=== PATIENT | male | born 1970 | race Caucasian/White ===

== ENCOUNTER 2021-04-24 13:07 | Emergency (ER) | payer OTHER, SELFPAY ==
[2021-04-24 15:00] VITALS: BP 141/87; PULSE 71; RESP 18; TEMP 37.1; O2SAT 97; BMI 32.0
--- NOTE | 2021-04-24 15:20 | HMH.EDUTC ---
[facility] [place] [facility] Disposition Clinical Impression: Viral syndrome Disposition: Home, Self-Care Condition on Discharge: Good Instructions: DI for Viral Syndrome, DI for COVID-19 (Suspected or Confirmed ) Additional Instructions: *Monitor Temp, Over the counter Motrin or Tylenol as directed/as needed Tylenol every 4 hours and Motrin every 6 hours (as long as your family doctor has told you that you can take it) for fever or pain. and straight to ER if unable to lower temp less than 101.0 after medication given *Warm salt water gargles may help to soothe the throat *Throat Lozenges *Warm fluids like tea with honey may help to soothe the throat *Sleep elevated *Humidifier/Vaporizer Follow up IMMEDIATELY for new or worsening symptoms or no Noticeable improvement over the next 48-72 hours. 911 for difficulty breathing or swallowing You were tested for today for COVID19 your test result should be back in the next 24-48 hours, you may check your results on the [facility] Portal if you have trouble logging on you may call You was given a handout with instructions for Self Quarantine and Self isolation for while you wait on test results and what to do if they are positive If you are positive the Health Dept will be contacting you also Make sure to take your Vitamins Vit. C Vit D and Zinc if you can take them Referrals: Sangeeta Kiser [Primary Care Provider] - As needed Forms: Work/School Release Medical Decision Making - Richard Inquiry Pt receiving controlled substance: No Richard was queried for this patient: No Vital Signs: 04/24/21 15:00 Temperature 98.8 F Temperature Source Oral Pulse Rate [Right Brachial] 71 Respiratory Rate 18 Blood Pressure [Right Arm] 141/87 H Blood Pressure Mean [Right Arm] 105 Blood Pressure Source [Right Arm] Automatic Cuff Blood Pressure Position [Right Arm] Sitting 02 Sat by Pulse Oximetry 97 Oxygen Delivery Method Room Air - Lab Data Lab results reviewed: Yes: I reviewed the patient's lab results. Orders (Tests/Meds): ORDERS Category Date Time Status Covid-19 Nasal PCR ([facility]) Routine Lab 04/24/21 15:17 Ordered [facility] [place] HPI - General Stated complaint: covid test Time Seen by Provider: 04/24/21 15:20 Mode of Arrival: Ambulatory Source of Information: Patient Limitations: No Limitations Description of Symptoms (Recalled from Triage Doc. by RN): PATIENT C/O FEVER, CHILLS, AND BODY ACHES SINCE YESTERDAY. REQUESTING COVID TEST HEENT Symptoms (Recalled from RN notes): No Resp Symptoms (Recalled from RN notes): No Skin Symptoms (Recalled from RN notes): No MS Symptoms (Recalled from RN notes): No Functional Status (Recalled from RN notes): WNL - History of Present Illness Provider Complaint: Patient states that yesterday he started having fever, chills and body aches State that he has continued to have same symptoms today and he was concerned and wanted to come in and get tested for COVID and flu - Related Data Allergies Allergy/AdvReac Type Severity Reaction Status Date / Time No Known Allergies Allergy Verified 11/01/18 17:04 - Worker's Comp Is this a Worker's Comp case?: No [facility] History - Hepatitis A Screen Drug use history?: No High risk sexual behaviors?: No History of sexually transmitted infection?: No Currently employed?: No Childcare worker?: No Do you have indoor plumbing?: Yes Do you have electricity?: Yes Attestation statement:: This patient has been screened for Hepatitis A risk factors. I have reviewed the patient's past medical history: Yes ROS Obtained: Yes All systems reviewed & no additional complaints, Yes Systems reviewed as appropriate & no additional complaints - Constitutional Constitutional: Reports system reviewed and no additional complaints, except as docu, Reports body ache, Reports chills, Reports fever(s) - ENT Ears, Nose, Mouth, and Throat: Reports system reviewed and no additional complaints, except as docu, Denies sinus pain,
[2021-04-24 15:25] VITALS: BP 141/87; PULSE 71; RESP 18; TEMP 37.1; O2SAT 97
[2021-04-24 15:40] LABS: UTC Influenza A Antigen Negative (Negative); UTC Influenza B Antigen Negative (Negative)
== END 2021-04-24 15:28 | disposition home or self-care (01) ==
PROVIDERS: Emergency Provider Nurse Practitioner; PCP Nurse Practitioner Family
DX: U07.1 COVID-19 (principal)
CPT/HCPCS: 87804; 99202; C9803; G0463; U0003; U0005

== ENCOUNTER 2022-02-26 11:34 | Emergency (ER) | payer OTHER, SELFPAY ==
[2022-02-26 13:16] VITALS: BP 132/86; PULSE 74; RESP 19; TEMP 36.7; O2SAT 98; BMI 33.0
--- NOTE | 2022-02-26 13:54 | EXP.UTC ---
Discharge Plan Disposition Patient Disposition: Home, Self-Care Condition: Good Prescriptions Prescriptions: New clindamycin HCl 300 mg capsule 300 mg PO Q8H Qty: 30 0RF mupirocin 2 % ointment 1 applic topical TID 10 Days Qty: 22 0RF Rx Instructions: apply to area as directed Referrals Follow up/Referrals: Kalyani Sullivan [Primary Care Provider] - See instructions Activity Restrictions/Add. Instructions Additional Instructions/Restrictions: *Start antibiotic(s) immediately and be sure to take as ordered for the FULL length of time although you may be feeling better or start to see improvement in the next 24-48 hours *Monitor closely. Outlined redness so that you can monitor easier. Follow up immediately for new or worsening symptoms including but not limited to redness, swelling, streaking from site fever or chills. *Warm compress 15 minutes 3-4 times day *Never squeeze or pop these on your own. Seek immediate medical attention next time this occurs *Monitor Temp. Tylenol every 4 hours as needed and ibuprofen every 6 hours as needed (as long as your primary care doctor has told you that it is ok to take both. For fever, aches, pain. ER if no less that 101 despite Tylenol and ibuprofen ?Follow up with your family doctor/primary care physician in the next 48-72 hours if no improvement Clinical Impressions Clinical Impression: Cellulitis Instructions Patient Instructions: Cellulitis, Clindamycin Discharge ED Provider: Martha Camejo [facility] General Stated complaint: bump on back, no major pain Mode of Arrival: Ambulatory Source of Information: Patient Limitations: No Limitations Time Seen by Provider: 02/26/22 13:54 Description of Symptoms (Recalled from Triage Doc. by RN): PATIENT REPORTS AREA TO UPPER BACK THAT IS RED AND WARM X 2 DAYS HEENT Symptoms (Recalled from RN notes): No Resp Symptoms (Recalled from RN notes): No Skin Symptoms (Recalled from RN notes): Yes MS Symptoms (Recalled from RN notes): No Functional Status (Recalled from RN notes): WNL History of Present Illness Provider Complaint: Patient states that he has a bump in the middle of his back that he noticed about a week ago that appears like it is getting bigger States that he noticed it was looking red around it and hard so he came in to get it checked out Related Data Previous Rx's Medication Instructions Recorded clindamycin HCl 300 mg capsule 300 mg PO Q8H #30 caps 02/26/22 mupirocin 2 % topical ointment 1 applic topical TID 10 days #22 02/26/22 grams Allergies Allergy/AdvReac Type Severity Reaction Status Date / Time Penicillins Allergy Verified 04/24/21 15:20 Worker's Comp Is this a Worker's Comp case?: No PFSH PFSH Medical History (Updated 02/26/22 @ 14:24 by Martha Camejo APRN) Depression Hyperlipidemia Social History (Updated 02/26/22 @ 13:18 by Bibiana Smith RN) Smoking Status: Unknown if ever smoked alcohol intake: never current occupational status: other Travel in the last 8 weeks: None ROS Obtained: Yes All systems reviewed & no additional complaints except as documented and Yes Systems reviewed as appropriate & no additional complaints except as documented Constitutional Constitutional: Reports system reviewed and no additional complaints, except as documented and Reports as per HPI ENT Ears, Nose, Mouth, and Throat: Reports system reviewed and no additional complaints, except as documented and Reports as per HPI Integumentary/Breasts Skin/Breast: Reports system reviewed and no additional complaints, except as documented, Reports as per HPI and Reports other (hard round area on back with surrounding redness got worse x 2 day) Physical Exam General General appearance: alert and in no apparent distress Respiratory Respiratory exam: Present normal lung sounds bilaterally; Absent respiratory distress or wheezes Cardiovascular Cardiovascular exam: Present regular rate, normal rhythm and
[2022-02-26 14:21] VITALS: BP 132/86; PULSE 74; RESP 19; TEMP 36.7; O2SAT 98
== END 2022-02-26 14:25 | disposition home or self-care (01) ==
PROVIDERS: Emergency Provider Nurse Practitioner; PCP Nurse Practitioner Family
DX: L03.312 Cellulitis of back [any part except buttock and flank] (principal)
CPT/HCPCS: 99212; G0463

== ENCOUNTER → 2022-03-15 15:34 | Outpatient (POV) | payer OTHER, SELFPAY | PROVIDERS: Visit Provider Dermatology | DX: Z00.00 Encounter for general adult medical examination without abnormal findings (principal) ==

== ENCOUNTER 2024-03-06 17:37 | Emergency (ER) | payer OTHER, SELFPAY ==
--- NOTE | 2024-03-06 17:39 | XR_ITS ---
PROCEDURE INFORMATION: Exam: XR Left Forearm Exam date and time: 03/06/2024 5:39 PM Age: 53 years old Clinical indication: Pain; Lower or forearm; Left TECHNIQUE: Imaging protocol: Radiologic exam of the left forearm. Views: 2 views. COMPARISON: No relevant prior studies available. FINDINGS: Bones/joints: No acute fracture or malalignment. Soft tissues: Unremarkable. IMPRESSION: No acute findings.
--- OUTSIDE RECORDS SUMMARY | 2024-03-06 17:41 | XMS_ITS | Encounter Summary ---
Author Organization [facility] Address [address] [place] [id number] Care Team Providers Care Pharmacologist Name Role Phone Laurie Kalyani Chely EASTMAN Primary Care Provider [phone] Encounter Details Date Type Department Care Team (Latest Contact Info) Description 01/26/2024 3:30 PM EDT Clinical Support [address] [address] Encounter for administration of vaccine (Primary Dx) Social History Tobacco Use Types Packs/Day Years Used Date Smoking Tobacco: Former Cigarettes 0.5 20 0 05/2002 - 05/2022 Passive Smoke Exposure: Past Smokeless Tobacco: Never PHQ-2 Answer Date Recorded Patient Health Questionnaire-2 Score 0 07/14/2023 PHQ-2A Answer Date Recorded Patient Health Questionnaire-2 Score 0 07/22/2022 Sex and Gender Information Value Date Recorded Sex Assigned at Not on file Legal Sex Male 7:58 PM EDT Gender Identity Male 06/18/2021 4:33 AM EST Sexual Orientation Not on file documented as of this encounter Last Filed Vital Signs Vital Sign Reading Time Taken Comments Blood Pressure - - Pulse 87 01/26/2024 3:29 PM EDT Temperature - - Respiratory Rate 18 01/26/2024 3:29 PM EDT Oxygen Saturation 95% 01/26/2024 3:29 PM EDT Inhaled Oxygen Concentration - - Weight - - Height - - Body Mass Index - - documented in this encounter Miscellaneous Notes * Progress Notes - Carrol Lee LPN - 01/26/2024 3:30 PM EDT Pt here for shingrix vaccine. Admin noted. Pt tolerated well. documented in this encounter Plan of Treatment Not on file documented as of this encounter Visit Diagnoses Diagnosis Encounter for administration of vaccine- Primary documented in this encounter Additional Health Concerns Assessment Noted Time A fall risk assessment has been complete d for the patient 07/14/2023 8:19 AM EDT A Body Mass Index follow-up plan has been documented for the patient 01/26/2024 3:32 PM EDT documented as of this encounter Care Teams Pharmacologist Relationship Specialty Start Date End Date Kalyani Sullivan, CRITICAL CARE EDUCATOR [address] [place] [address] PCP - General 08/28/20 documented as of this encounter
--- OUTSIDE RECORDS SUMMARY | 2024-03-06 17:41 | XMS_ITS | Encounter Summary ---
Author Organization [facility] Address [address] [id number] Care Team Providers Care Retail Department Manager Name Role Phone Kalyani Sullivan ROUTE SALES DELIVERY DRIVER Primary Care Provider [phone] Encounter Details Date Type Department Care Team (Late st Contact Info) Description 01/18/2024 Orders Only [facility] [address] [place] [address] Kalyani Sullivan APRN [address] [place] [address] Uncontrolled type 2 diabetes mellitus with hyperglycemia (CMS/HCC) (Primary Dx) Social History Tobacco Use Types [...] on file documented as of this encounter Plan of Treatment Not on file documented as of this encounter Visit Diagnoses Diagnosis Uncontrolled type 2 diabetes mellitus with hyperglycemia (CMS/HCC)- Primary documented in this encounter Additional Health Concerns Assessment Noted Time A fall risk assessment has been complete d for the patient 07/14/2023 8:19 AM EDT A Body Mass Index follow-up plan has been documented for the patient 07/14/2023 8:58 AM EDT documented as of this encounter Care Teams Retail Department Manager Relationship Specialty Start Date End Date Kaylani Sullivan APRN [address] [place] [id number] PCP - General 08/28/20 documented as of this encounter
--- OUTSIDE RECORDS SUMMARY | 2024-03-06 17:41 | XMS_ITS | Encounter Summary ---
Author Organization [facility] Address [address] [place] [address] Care Team Providers Care Light Oil Operator Name Role Phone Kalyani Sullivan APRN Primary Care Provider [phone] Encounter Details Date Type Department Care Team (Latest Contact Info) Description 01/26/2024 Travel Social History Tobacco Use Types Packs/Day Years [...] documented as of this encounter Visit Diagnoses Not on filedocumented in this encounter Additional Health Concerns Assessment Noted Time A fall risk assessment has been complete d for the patient 07/14/2023 8:19 AM EDT A Body Mass Index follow-up plan has been documented for the patient 01/26/2024 3:32 PM EDT documented as of this encounter Care Teams Light Oil Operator Relationship Specialty Start Date End Date Kalyani Sullivan APRN [address] [place] [address] PCP - General 08/28/20 documented as of this encounter
--- OUTSIDE RECORDS SUMMARY | 2024-03-06 17:41 | XMS_ITS | Encounter Summary ---
Author Organization [facility] Address [address] [place] [address] Care Team Providers Care Warehouse Picker Name Role Phone Kalyani Sullivan ENTRY LEVEL MACHINE OPERATOR Primary Care Provider [phone] Reason for Visit * Reason Comments Med Refill Encounter Details Date Type Department Care Team (Late st Contact Info) Description 10/24/2023 Refill [facility] [address] [place] [address] Kalyani Sullivan, ENTRY LEVEL MACHINE OPERATOR [address] [place] [address] Uncontrolled type 2 diabetes mellitus with hyperglycemia (CMS/HCC) Social History Tobacco Use Types Packs/Day Years [...] on file documented as of this encounter Miscellaneous Notes * Telephone Encounter - David Shledon, PharmD - 10/26/2023 12:14 PM EDT 1 medication(s) has been denied per protocol due to: Refill requested too soon 9 months sent 09/28/23 documented in this encounter Plan of Treatment Not on file documented as of this encounter Visit Diagnoses Diagnosis Uncontrolled type 2 diabetes mellitus with hyperglycemia (CMS/HCC) documented in this encounter Additional Health Concerns Assessment Noted Time A fall risk assessment has been complete d for the patient 07/14/2023 8:19 AM EDT A Body Mass Index follow-up plan has been documented for the patient 07/14/2023 8:58 AM EDT documented as of this encounter Care Teams Warehouse Picker Relationship Specialty Start Date End Date Kalyani Sullivan, JAREN [address] [place] [address] PCP - General 08/28/20 documented as of this encounter
--- OUTSIDE RECORDS SUMMARY | 2024-03-06 17:41 | XMS_ITS | Encounter Summary ---
Author Organization [facility] Address [address] [id number] Care Team Providers Care Ticket Chopper Assembler Name Role Phone Kalyani Sullivan TELEGRAPH DISPATCHER Primary Care Provider Encounter Details Date Type Department Care Team (Late st Contact Info) Description 11/02/2023 Orders Only [facility] [address] [place] [address] Kalyani Sullivan TELEGRAPH DISPATCHER [address] [place] [address] Uncontrolled type 2 diabetes mellitus [...] documented as of this encounter Care Teams Ticket Chopper Assembler Relationship Specialty Start Date End Date Kalyani Sullivan APRN [facility] [place] [phone] PCP - General 08/28/20 documented as of this encounter
--- OUTSIDE RECORDS SUMMARY | 2024-03-06 17:41 | XMS_ITS | Clinical Summary ---
Author Organization [facility] Address [address] [place] [address] Care Team Providers Care Options Advisor Name Role Phone LaurieKalyani tavarez Chely EASTMAN Primary Care Provider [phone] Allergies Active Allergy Reactions Criticality Noted Date Comments Penicillins Unknown - Patient st ates they do not know rxn details Low 07/11/2014 Medications metFORMIN XR (Glucophage-XR) 500 MG 24 hr tabletIndications :Uncontrolled type 2 diabetes mellitus with hyperglycemia (CMS/[facility]),Control led type 2 diabetes mellitus without complication, without long-term current use of insulin (CMS/HCC),Healthc are maintenance TAKE 1 TABLET TWICE A DAY WITH MEALS (DO NOT CRUSH, CHEW OR SPLIT) 180 tablet 3 07/14/19 24 Active pravastatin (Pravachol) 80 MG tabletIndications :Controlled type 2 diabetes mellitus without complication, without long-term current use of insulin (CMS/[facility]),Hypertr iglyceridemia,Hea lthcare maintenance Take 1 tablet (80 mg) by mouth 1 (one) time each day. 90 tablet 3 07/14/19 24 Active losartan (Cozaar) 25 MG tabletIndications :Controlled type 2 diabetes mellitus without complication, without long-term current use of insulin (CMS/HCC),Primary hypertension,Heal thcare maintenance Take 1 tablet (25 mg) by mouth 1 (one) time each day. 90 tablet 3 07/14/19 24 Active Fenofibrate 50 MG capsuleIndication s:Controlled type 2 diabetes mellitus without complication, without long-term current use of insulin (CMS/HCC),Hypertr iglyceridemia,Hea lthcare maintenance Take 1 capsule once a day with a meal 90 capsule 3 07/14/19 24 Active Semaglutide, 1 MG/DOSE, (Ozempic, 1 MG/DOSE,) 4 MG/3ML solution pen-injectorIndic ations:Uncontroll ed type 2 diabetes mellitus with hyperglycemia (CMS/HCC) Inject 1 mg under the skin 1 (one) time per week. 9 mL 01/18/20 24 Active FLUoxetine (PROzac) 40 MG capsuleIndication s:Generalized anxiety disorder Take 1 capsule (40 mg) by mouth 1 (one) time each day. 90 capsule 1 02/27/20 24 Active FLUoxetine (PROzac) 40 MG capsuleIndication s:Generalized anxiety disorder Take 1 capsule (40 mg) by mouth 1 (one) time each day. 30 capsule 5 08/09/19 24 024 Discontinued Active Problems Problem Noted Date Diagnosed Date Uncontrolled type 2 diabetes mellitus with hyper glycemia 10/19/2021 Hypertriglyceridemia 08/04/2020 Actinic keratosis 07/31/2020 Controlled type 2 diabetes mellitus 07/31/2020 Hypertension 06/29/2016 Generalized anxiety disorder 07/12/2014 Encounters Date Type Department Care Team Description 02/25/2024 Refill [facility] [address] [place] [address] Kalyani Sullivan APRN Generalized anxiety disorder 01/26/2024 3:30 PM EDT Clinical Support [facility] [address] [place] [address] Encounter for administration of vaccine (Primary Dx) 01/26/2024 Travel 01/18/2024 Orders Only [facility] [address] [place] [address] Kalyani Sullivan APRN Uncontrolled type 2 diabetes mellitus with hyperglycemia (CMS/HCC) (Primary Dx) 01/17/2024 Telephone [facility] [address] [place] [address] Kalyani Sullivan APRN 01/15/2024 Refill [facility] [address] [place] [address] Kalyani Sullivan, ASSISTANT DIRECTOR Uncontrolled type 2 diabetes mellitus with hyperglycemia (CMS/HCC) from Last 3 Months Immunizations Name Administration Dates Next Due Hep A, Adult 05/25/2018,02/16/2018 Influenza, injectable, MDCK, preservative free, quadrivalent 01/11/2022 Influenza, injectable, quadrivalent 02/16/2018 Moderna COVID-19 Vaccine Bivalent 6months+ 01/11 Tdap 08/23/2019 Zoster, Recombinant 01/26/2024,07/14/2023 Family History Medical History Relation Name Comments Hypertension Father Cardiac disorder Paternal Grandmother Relation Name Status Comments Father Paternal Grandmother Social History Tobacco Use Types Packs/Day Years Used Date Smoking Tobacco: Former Cigarettes 0.5 20 0 05/2002 - 05/2022 Passive Smoke Exposure: Past Smokeless Tobacco: Never Tobacco Cessation:Counseling Given: Not Answered PHQ-2 Answer Date Recorded Patient Health Questionnaire-2 Score 0 07/14/2023 PHQ-2A Answer Date Recorded Patient Health Questionnaire-2 Score 0 07/22/2022 Sex and Gender Information Value Date Recorded Sex Assigned at Not on file Legal Sex Male 7:58 PM EDT Gender Identity Male 06/18/2021 4:33 AM EST Sexual Orientation Not on file Last Filed Vital Signs Vital Sign Reading Time Taken Comments Blood Pressure 132/82 07/14/2023 8:14 AM EDT Pulse 87 01/26/2024 3:29 PM EDT Temperature 36.7 ??C (98 ??F) 07/22/2022 7:34 AM EDT Respiratory Rate 18 01/26/2024 3:29 PM EDT Oxygen Saturation 95% 01/26/2024 3:29 PM EDT Inhaled Oxygen Concentration - - Weight 105 kg (231 lb 12.8 oz) 07/14/2023 8:14 A M EDT Height 177.8 cm (5' 10 ) 07/14/2023 8:14 AM EDT Body Mass Index 33.26 07/14/2023 8:14 AM EDT Plan of Treatment Health Maintenance Due Date Last Done Comments [facility]-HIV Screening 1971 [facility]-Infant/Child/Adol SDOH Screenings 1971 [facility]-Pneumococcal Vaccine: Pediatrics (0 to 5 Years) and At-Risk Patients (6 to 64 Years) (1 of 2 - PCV) 10/07/1977 Diabetes: Dental Exam 10/07/1981 [facility]- SDOH Screenings 10/07/1989 [facility]-Adult SDOH Screenings 10/07/1989 [facility]-Hepatitis B Vaccines (1 of 3 - 19+ 3-dose series) 10/07/1990 CT Colonography 10/07/2016 FIT-DNA 10/07/2016 FIT 10/07/2016 FOBT 10/07/2016 Sigmoidoscopy 10/07/2016 [id number] Vaccine ( season) 2023 01/11/2022, 01/13/2021, 12/14/2020 [facility]-Influenza Vaccine (#1) 2023 01/11/2022, [facility]-Diabetes: Hemoglobin A1C 01/11/2024, 07/22/2022, 06/23/2021, Additional history exists [facility]-Depression Screening 07/13/2024 07/14/2023 [facility]-DTaP,Tdap,and Td Vaccines (2 - Td or Tdap) 08/22/2029 08/23/2019 Colonoscopy 02/05/2032 02/04/2022 [facility]-Colorectal Cancer Screening 02/05/2032 [facility]-RSV Vaccine: 60+ Years or (1 - 1-dose 75+ series) 10/07/2046 [facility]-Hepatitis A Vaccines Aged Out 05/25/2018, 05/2017 No longer eligible based on patient's age to complete this topic [facility]-Hepatitis C Screening Completed 08/05/2021 [facility]-Obesity Intervention Completed 024, 07/14/2023, 07/14/2023, Additional history exists [facility]-Zoster Vaccines Completed 01/26/2024, [facility]-HIB Vaccines Aged Out No longer e ligible based on patient's age to complete this topic [facility]-HPV Vaccines Aged Out No longer e ligible based on patient's age to complete this topic [facility]-IPV Vaccines Aged Out No longer e ligible based on patient's age to complete this topic [facility]-Rotavirus Vaccines Aged Out No lo nger eligible based on patient's age to complete this topic Procedures Procedure Name Priority Date/Time Associated Diagnosis Comments HEMOGLOBIN A1C Routine 07/14/2023 9:04 AM EDT Controlled type 2 diabetes mellitus without complication, without long-term current use of insulin (CMS/HCC) Healthcare maintenance COLONOSCOPY EXTERNAL RESULT 02/04/2022 ACUTE HEPATITIS PANEL Routine 08/05/2021 8:31 AM EDT Elevated liver function tests from Last 3 Months or Most Recently Relevant to Health Maintenance Results * Hemoglobin A1c (07/14/2023 9:04 AM EDT) Hemoglobin A1c 5.6 <5.7 % 07/14/2023 1:18 PM EDT [facility] Blood Venous blood specimen / Unknown Venipuncture / Unknown 07/14/2023 9:04 AM EDT 07/14/2023 9:04 AM EDT Narrative [facility] - 07/14/2023 1:18 PM EDT HA1C Interpretive Data: Diagnosis of Diabetes: Diabetic > or = 6.5% Pre-diabetic 5.7 to 6.4% Non-diabetic < or = 5.6% Glycemic Targets for Type I and Type II Diabetics: Non- Adults <7.0% Adults <6.0% Children and Adolescents <7.5% Source: ??[place] Diabetes Association. Standards of medical care in diabetes,2017. Diabetes Care.2017:40 (suppl 1):S1-S135. HbA1c assay performed by an ion-exchange chromatography method that is certified traceable to the DCCT. us Kalyani Sullivan APRN LAB BLOOD ORDERABLES Final Re sult [facility] [address] [place] [address] * COLONOSCOPY EXTERNAL RESULT (02/04/2022) Anatomical Region Laterality Modality Endoscopy Narrative 02/04/2022 Ordered by an unspecified provider. us External Provider GI PROCEDURE ORDERABLES Final Result * Acute Hepatitis Panel (08/05/2021 8:31 AM EDT) Hepatitis B Surf Antigen Negative Negative 08/05/2021 1:18 PM EDT [facility] Hepatitis C Antibody Negative Negative 08/05/2021 1:18 PM EDT [facility] Hepatitis A Antibody IgM Negative Negative 08/05/2021 1:18 PM EDT [facility] Hepatitis B Core Antibody IgM Negative Negative 08/05/2021 1:18 PM EDT [facility] Blood Venous blood specimen / Unknown Venipuncture / Unknown 08/05/2021 8:31 AM EDT 08/05/2021 8:31 AM EDT us Kalyani Sullivan ASSISTANT DIRECTOR LAB BLOOD ORDERABLES Final Re sult [facility] [address] [place] [id number] from Last 3 Months or Most Recently Relevant to Health Maintenance Insurance CIG Care Teams Options Advisor Relationship Specialty Start Date End Date Kalyani Sullivan APRN [address] [place] [address] PCP - General 08/28/20
--- OUTSIDE RECORDS SUMMARY | 2024-03-06 17:41 | XMS_ITS | Encounter Summary ---
Author Organization [facility] Address [address] [id number] Care Team Providers Care Paunch Trimmer Name Role Phone Kalyani Sullivan CLOUD DEVELOPER Primary Care Provider [phone] Encounter Details Date Type Department Care Team (Late st Contact Info) Description 11/01/2023 Orders Only [facility] [address] [place] [address] Kalyani Sullivan APRN [address] [place] [address] Uncontrolled type 2 diabetes mellitus [...] documented as of this encounter Care Teams Paunch Trimmer Relationship Specialty Start Date End Date Kalyani Sullivan APRN [address] [place] [phone] PCP - General 08/28/20 documented as of this encounter
--- OUTSIDE RECORDS SUMMARY | 2024-03-06 17:41 | XMS_ITS | Encounter Summary ---
Author Organization [facility] Address [address] [place] [address] Care Team Providers Care Air Chipper Name Role Phone Kalyani Sullivan LITHOGRAPH DESIGNER Primary Care Provider [phone] Reason for Visit * Reason Comments Med Refill Encounter Details Date Type Department Care Team (Late st Contact Info) Description 02/25/2024 Refill [facility] [address] [place] [address] Kalyani Sullivan, LITHOGRAPH DESIGNER [address] [place] [address] Generalized anxiety disorder Social History Tobacco Use Types Packs/Day Years [...] encounter Miscellaneous Notes * Telephone Encounter - Jony Santiago PharmD - 02/27/2024 10:27 AM EST 1 medication(s) has been approved per protocol. documented in this encounter Plan of Treatment Not on file documented as of this encounter Visit Diagnoses Diagnosis Generalized anxiety disorder documented in this encounter Additional Health Concerns Assessment Noted Time A fall risk assessment has been complete d for the patient 07/14/2023 8:19 AM EDT A Body Mass Index follow-up plan has been documented for the patient 01/26/2024 3:32 PM EDT documented as of this encounter Care Teams Air Chipper Relationship Specialty Start Date End Date Kalyani Sullivan APRN [address] [place] [phone] PCP - General 08/28/20 documented as of this encounter
--- OUTSIDE RECORDS SUMMARY | 2024-03-06 17:41 | XMS_ITS | Encounter Summary ---
Author Organization [facility] Address [address] [id number] Care Team Providers Care Director Of Marketing Name Role Phone Kalyani Sullivan SOURCING CONSULTANT Primary Care Provider [phone] Encounter Details Date Type Department Care Team (Late st Contact Info) Description 01/17/2024 Telephone [facility] [address] [place] [address] Kalyani Sullivan APRN [address] [place] [address] Social History Tobacco Use Types Packs/Day Years [...] encounter Miscellaneous Notes * Telephone Encounter - Marilu Salguero - 01/18/2024 9:19 AM EDT PT aware * Telephone Encounter - Marilu Salguero - 01/17/2024 3:22 PM EDT Lmtrc x1 * Telephone Encounter - Carrol Bryant - 01/17/2024 3:16 PM EDT Clinical Concern/Question Reason for Call: Pt returning a missed call. States it may be regarding a medication. Please try again when free. Best contact number: [phone] (home) Optimal time of day to reach caller: ANYTIME Additional comments/information from caller: None Note: Please do not reply to this message. Follow-up communication and further actions as a result of this message need to be communicated with the patient directly, if the patient is not active onMyChart. If the patient is active on MyChart, they will receive notification of the communication/outcome via CatchMe!. documented in this encounter Plan of Treatment [...] documented as of this encounter Care Teams Director Of Marketing Relationship Specialty Start Date End Date K[place] [address] PCP - General 08/28/20 documented as of this encounter
--- OUTSIDE RECORDS SUMMARY | 2024-03-06 17:41 | XMS_ITS | Encounter Summary ---
Author Organization [facility] Address [address] [place] [address] Care Team Providers Care Brazer [employer] Name Role Phone Kalyani Sullivan STOCK SORTER Primary Care Provider [phone] Reason for Visit * Reason Comments Med Refill Encounter Details Date Type Department Care Team (Late st Contact Info) Description 01/15/2024 Refill [facility] [address] [place] [address] Kalyani Sullivan, STOCK SORTER [address] [place] [address] Uncontrolled type 2 diabetes mellitus [...] Telephone Encounter - Marilu Salguero - 01/18/2024 9:32 AM EDT Provider called in the 1MG * Telephone Encounter - Siobhan Coburn - 01/17/2024 2:10 PM EDT LVM for pt to return call documented in this encounter Plan of Treatment [...] documented as of this encounter Care Teams [employer] Relationship Specialty Start Date End Date Kalyani Sullivan, STOCK SORTER [address] [place] [address] PCP - General 08/28/20 documented as of this encounter
--- OUTSIDE RECORDS SUMMARY | 2024-03-06 17:42 | XMS_ITS | Encounter Summary ---
Author Organization [facility] [place] [facility] Address [address] [id number] Care Team Providers Care Lehr Operator Name Role Phone Kalyani Sullivan CHAR FILTER TANK TENDER HEAD Primary Care Provider [phone] Reason for Visit * Reason Comments Med Refill Encounter Details Date Type Department Care Team (Late st Contact Info) Description 12/14/2021 [facility] [address] [place] [address] Kalyani Sullivan, CHAR FILTER TANK TENDER HEAD [address] [place] [address] Primary hypertension Social History Tobacco Use Types Packs/Day Years Used Date Smoking Tobacco: Every Day Cigarettes 0.5 20 Smokeless Tobacco: Never PHQ-2 Answer Date Recorded Patient Health Questionnaire-2 Score 0 06/23/2021 Sex and Gender Information Value Date Recorded Sex Assigned at Not on file Legal Sex Male 7:58 PM EDT Gender Identity Male 06/18/2021 4:33 AM EST Sexual Orientation Not on file documented as of this encounter Miscellaneous Notes * Telephone Encounter - Jains Bautista - 12/15/2021 11:08 AM EDT Per protocol, 1 medication(s), Losartan 25mg, has been refused due to: Refill requested too soon. Rx sent in 7.29.22 for 90 days with 2 refills. Rx sent to [facility]. documented in this encounter Plan of Treatment Not on file documented as of this encounter Visit Diagnoses Diagnosis Primary hypertension Unspecified essential hypertension documented in this encounter Care Teams Lehr Operator Relationship Specialty Start Date End Date Kalyani Sullivan, CHAR FILTER TANK TENDER HEAD [address] [place] [address] PCP - General 08/28/20 documented as of this encounter
--- OUTSIDE RECORDS SUMMARY | 2024-03-06 17:42 | XMS_ITS | Encounter Summary ---
Author Organization [facility] Address [address] [place] [address] Care Team Providers Care Infrastructure Manager Name Role Phone Kalyani Sullivan ENVIRONMENTAL COMPLIANCE SPECIALIST Primary Care Provider [phone] Reason for Visit * Reason Onset Date Comments Med Refill 08/09/2023 Encounter Details Date Type Department Care Team (Late st Contact Info) Description 08/09/2023 Refill [facility] [address] [place] [address] Kalyani Sullivan, ENVIRONMENTAL COMPLIANCE SPECIALIST [address] [place] [address] Generalized anxiety disorder (Primary Dx) Social History Tobacco Use Types [...] this encounter Visit Diagnoses Diagnosis Generalized anxiety disorder- Primary documented in this encounter Additional Health Concerns Assessment Noted Time A fall risk assessment has been complete d for the patient 07/14/2023 8:19 AM EDT A Body Mass Index follow-up plan has been documented for the patient 07/14/2023 8:58 AM EDT documented as of this encounter Care Teams Infrastructure Manager Relationship Specialty Start Date End Date Kalyani Sullivan APRN [address] [place] [phone] PCP - General 08/28/20 documented as of this encounter
--- OUTSIDE RECORDS SUMMARY | 2024-03-06 17:42 | XMS_ITS | Encounter Summary ---
Author Organization [facility] Address [address] [place] [address] Care Team Providers Care Metalizer Name Role Phone Kalyani Sullivan KITCHEN DESIGNER Primary Care Provider [phone] Reason for Visit * Reason Comments Diabetes Encounter Details Date Type Department Care Team (Latest Contact Info) Description 07/22/2022 7:40 AM EDT Office Visit [facility] [address] [place] [address] Kalyani Sullivan, KITCHEN DESIGNER [address] [place] [address] Prostate cancer screening (Primary Dx); Generalized anxiety disorder; Primary hypertension; Controlled type 2 diabetes mellitus without complication, without long-term current use of insulin (CMS/HCC); Hypertriglyceridemia; Uncontrolled type 2 diabetes mellitus with hyperglycemia ([facility]/HCC) Social History Tobacco Use Types Packs/Day Years Used Date Smoking Tobacco: Every Day Cigarettes 0.5 20 Smokeless Tobacco: Never Tobacco Cessation:Ready to Q uit: No; Counseling Given: Yes PHQ-2 Answer Date Recorded Patient Health Questionnaire-2 Score 0 07/22/2022 PHQ-2A Answer Date Recorded Patient Health Questionnaire-2 Score 0 07/22/2022 Sex and Gender Information Value Date Recorded Sex Assigned at Not on file Legal Sex Male 7:58 PM EDT Gender Identity Male 06/18/2021 4:33 AM EST Sexual Orientation Not on file COVID-19 Exposure Response Date Recorded In the last 10 days, have yo u been in contact with someone who was confirmed or suspected to have Coronavirus/COVID-19? No / Unsure 07/22/2022 7:29 AM EDT documented as of this encounter Last Filed Vital Signs Vital Sign Reading Time Taken Comments Blood Pressure 120/74 07/22/2022 7:34 AM EDT Pulse 84 07/22/2022 7:34 AM EDT Temperature 36.7 ??C (98 ??F) 07/22/2022 7:34 AM EDT Respiratory Rate 22 07/22/2022 7:34 AM EDT Oxygen Saturation 100% 07/22/2022 7:34 AM EDT Inhaled Oxygen Concentration - - Weight 107 kg (236 lb 12.4 oz) 07/22/2022 7:34 A M EDT Height 177.8 cm (5' 10 ) 07/22/2022 7:34 AM EDT Body Mass Index 33.97 07/22/2022 7:34 AM EDT documented in this encounter Miscellaneous Notes * Progress Notes - Kalyani Sullivan, KITCHEN DESIGNER - 07/22/2022 7:40 AM EDT Subjective Patient ID: Mike Celis is a 51 y.o. male. Chief Complaint Patient presents with Diabetes Here for f/u on chronic conditions. Last a1c was 8.4 a year ago. Taking his diabetes medications as directed. Glucose runs around 100. Ranges from 90 - 120. Denies vision changes and eye exam was May and it was good. Denies chest pain or SOA. Would like PSA test as his dad had prostate cancer. Has switched to vape from cigarettes. Not ready to quit. Up to date on colonoscopy. Up to date on tdap. Had a cyst removed from his back. Would like sutures removed but it is a bit early to remove them yet. Mood is good on paxil. Wants to continue it. Diabetes He presents for his follow-up diabetic visit. He has type 2 diabetes mellitus. There are no hypoglycemic associated symptoms. Pertinent negatives for diabetes include no blurred vision, no chest pain, no fatigue, no foot paresthesias, no foot ulcerations, no polydipsia, no polyphagia, no polyuria, no visual change, no weakness and no weight loss. There are no hypoglycemic complications. There areno diabetic complications. Risk factors for coronary artery disease include tobacco exposure, male sex, hypertension, dyslipidemia, diabetes mellitus, family history and obesity. Current diabetic treatment includes oral agent (dual therapy). His weight is stable. He never participates in exercise. An MARÍA inhibitor/angiotensin II receptor blake is being taken. Eye exam is current. The following portions of the chart were reviewed this encounter and updated as appropriate: Tobacco Current Outpatient Medications: dulaglutide (Trulicity) 3 MG/0.5ML inj. pen, Inject 3 mg once a week subcutaneously., Disp: 6 mL, Rfl: 2 Fenofibrate 50 MG capsule, Take 1 capsule once a day with a meal, Disp: 90 capsule, Rfl: 3 Krill Oil 500 MG capsule, Take by mouth., Disp: , Rfl: losartan (Cozaar) 25 MG tablet, Take 1 tablet (25 mg total) by mouth 1 (one) time each day., Disp: 90 tablet, Rfl: 3 metFORMIN XR (Glucophage-XR) 500 MG 24 hr tablet, Take 1 tablet (500 mg total) by mouth 2 (two) times a day with meals. Do not crush, chew, or split., Disp: 180 tablet, Rfl: 3 PARoxetine (Paxil) 20 MG tablet, TAKE 1 TABLET(20 MG) BY MOUTH 1 TIME EACH DAY, Disp: 90 tablet, Rfl: 3 pravastatin (Pravachol) 80 MG tablet, Take 1 tablet (80 mg total) by mouth 1 (one) time each day., Disp: 90 tablet, Rfl: 3 zinc gluconate 50 MG tablet, Take 50 mg by mouth 1 (one) time each day., Disp: , Rfl: Objective Blood pressure 120/74, pulse 84, temperature 36.7 ??C (98 ??F), resp. rate 22, height 1.778 m (5' 10 ), weight 107 kg (236 lb 12.4 oz), SpO2 100 %. Body mass index is 33.97 kg/m??. Physical Exam Vitals reviewed. Constitutional: Appearance: Normal appearance. HENT: Head: Normocephalic. Right Ear: Tympanic membrane, ear canal and external ear normal. Left Ear: Tympanic membrane, ear canal and external ear normal. Nose: Nose normal. Mouth/Throat: Mouth: Mucous membranes are moist. Pharynx: Oropharynx is clear. Eyes: Conjunctiva/sclera: Conjunctivae normal. Pupils: Pupils are equal, round, and reactive to light. Cardiovascular: Rate and Rhythm: Normal rate and regular rhythm. Pulses: Normal pulses. Heart sounds: Normal heart sounds. Pulmonary: Effort: Pulmonary effort is normal. Breath sounds: Normal breath sounds. Musculoskeletal: General: Normal range of motion. Cervical back: Normal range of motion. Skin: General: Skin is warm and dry. Neurological: Mental Status: He is alert and oriented to person, place, and time. Psychiatric: Mood and Affect: Mood normal. Behavior: Behavior normal. Thought Content: Thought content normal. Judgment: Judgment normal. Assessment/Plan Diagnoses and all orders for this visit: Prostate cancer screening - Prostate Cancer Screen, Serum Generalized anxiety disorder - PARoxetine (Paxil) 20 MG tablet; TAKE 1 TABLET(20 MG) BY MOUTH 1 TIME EACH DAY Primary hypertension - losartan (Cozaar) 25 MG tablet; Take 1 tablet (25 mg total) by mouth 1 (one) time each day. Controlled type 2 diabetes mellitus without complication, without long-term current use of insulin (CMS/HCC) - pravastatin (Pravachol) 80 MG tablet; Take 1 tablet (80 mg total) by mouth 1 (one) time each day. Hypertriglyceridemia - pravastatin (Pravachol) 80 MG tablet; Take 1 tablet (80 mg total) by mouth 1 (one) time each day. - Fenofibrate 50 MG capsule; Take 1 capsule once a day with a meal Uncontrolled type 2 diabetes mellitus with hyperglycemia (CMS/HCC) - metFORMIN XR (Glucophage-XR) 500 MG 24 hr tablet; Take 1 tablet (500 mg total) by mouth 2 (two) times a day with meals. Do not crush, chew, or split. - dulaglutide (Trulicity) 3 MG/0.5ML inj. pen; Inject 3 mg once a week subcutaneously. - Comprehensive Metabolic Panel, Plasma - CBC and Differential - Lipid Profile, Plasma - Hemoglobin A1c - Vitamin D 25 Hydroxy - Vitamin B12, Serum - Thyroid Stimulating Hormone, Plasma Screening labs today As routine health maintenance discussed Recommend smoking cessation Continue current medication regimen The patient received dietary education because they have an above normal BMI. and The patient received exercise education because they have an above normal BMI. Note to patient: The Cures Act makes medical notes like these available to patients inthe interest of transparency. However, be advised this is a medical document. It is intended as peer to peer communication. It is written in medical language and may contain abbreviations or verbiagethat are unfamiliar. It may appear blunt or direct. Medical documents are intended to carry relevant information, facts as evident, and the clinical opinion of the practitioner. documented in this encounter Plan of Treatment Not on file documented as of this encounter Procedures Procedure Name Priority Date/Time Associated Diagnosis Comments PROSTATE CANCER SCREEN, SERUM Routine 07/22/2022 8:17 AM EDT Prostate cancer screening VITAMIN D 25 HYDROXY Routine 07/22/2022 8:17 AM EDT Uncontrolled type 2 diabetes mellitus with hyperglycemia (CMS/HCC) CBC WITH AUTO DIFFERENTIAL Routine 07/22/2022 8:17 AM EDT Uncontrolled type 2 diabetes mellitus with hyperglycemia (CMS/HCC) TSH Routine 07/22/2022 8:17 AM EDT Uncontrolled type 2 diabetes mellitus with hyperglycemia (CMS/HCC) HEMOGLOBIN A1C Routine 07/22/2022 8:17 AM EDT Uncontrolled type 2 diabetes mellitus with hyperglycemia (CMS/HCC) VITAMIN B12, SERUM Routine 07/22/2022 8: 17 AM EDT Uncontrolled type 2 diabetes mellitus with hyperglycemia (CMS/HCC) LIPID PROFILE, PLASMA Routine 07/22/2022 8:17 AM EDT Uncontrolled type 2 diabetes mellitus with hyperglycemia (CMS/HCC) COMPREHENSIVE METABOLIC PANEL, PLASMA Routine 07/22/2022 8:17 AM EDT Uncontrolled type 2 diabetes mellitus with hyperglycemia (CMS/HCC) documented in this encounter Results * Prostate Cancer Screen, Serum (07/22/2022 8:17 AM EDT) Prostate Cancer Screen, Serum 1.11 0.00 - 3.50 ng/mL 07/22/2022 1:39 PM EDT [facility] Blood Venous blood specimen / Unknown Venipuncture / Unknown 07/22/2022 8:17 AM EDT 07/22/2022 8:20 AM EDT Narrative [facility] - 07/22/2022 1:39 PM EDT Performed by Magdalena electrochemiluminescent immunoassay which is standardized against the PSA Matt Reference Standard (WHO 96/670). Results obtained with different test methods or kits cannot be used interchangeably. us Kalyani Isaacsum KITCHEN DESIGNER LAB BLOOD ORDERABLES Final Re sult Performing Organization Address [facility] Co de Phone Number [facility] [address] [place] [address] * Thyroid Stimulating Hormone, Plasma (07/22/2022 8:17 AM EDT) Thyroid Stimulating Hormone, Plasma 2.07 0.40 - 4.20 uIU/mL 07/22/2022 1:47 PM EDT [facility] Blood Venous blood specimen / Unknown Venipuncture / Unknown 07/22/2022 8:17 AM EDT 07/22/2022 8:20 AM EDT us Kalyani Mo Laurie KITCHEN DESIGNER LAB BLOOD ORDERABLES Final Re sult Performing Organization Address [facility] Phone Number [facility] [address] [place] [address] * Vitamin B12, Serum (07/22/2022 8:17 AM EDT) Vitamin B12, Serum 748 210 - 1,033 pg/mL 07/22/2022 1:52 PM EDT [facility] Blood Venous blood specimen / Unknown Venipuncture / Unknown 07/22/2022 8:17 AM EDT 07/22/2022 8:20 AM EDT us Kalyani Sullivan KITCHEN DESIGNER LAB BLOOD ORDERABLES Final Re sult Performing Organization Address [facility] de Phone Number [facility] [address] [place] [address] * Vitamin D 25 Hydroxy (07/22/2022 8:17 AM EDT) Vitamin D 25 Hydroxy 23.7 20.0 - 80.0 ng/mL 07/22/2022 4:03 PM EDT [facility] Comment: Vitamin D, 25-Hydroxy reference range, age 18 years and up: Deficiency: ? <12 ng/mL Insufficiency: ?12 to 19 ng/mL Sufficiency: ?20 to 80 ng/mL Possible toxicity: ??>100 ng/mL Blood Venous blood specimen / Unknown Venipuncture / Unknown 07/22/2022 8:17 AM EDT 07/22/2022 8:20 AM EDT Kalyani Chely [place] KITCHEN DESIGNER LAB BLOOD ORDERABLES Final Re sult Performing Organization Address [facility] de Phone Number [facility] [address] [place] [address] * Hemoglobin A1c (07/22/2022 8:17 AM EDT) Hemoglobin A1c 5.4 <5.7 % 07/22/2022 1:54 PM EDT [facility] Blood Venous blood specimen / Unknown Venipuncture / Unknown 07/22/2022 8:17 AM EDT 07/22/2022 8:20 AM EDT Narrative [facility] - 07/22/2022 1:54 PM EDT HA1C Interpretive Data: Diagnosis of Diabetes: Diabetic > or = 6.5% Pre-diabetic 5.7 to 6.4% Non-diabetic < or = 5.6% Glycemic Targets for Type I and Type II Diabetics: Non- Adults <7.0% Adults <6.0% Children and Adolescents <7.5% Source: ??[place] [employer]. Standards of medical care in diabetes,2017. Diabetes Care.2017:40 (suppl 1):S1-S135. HbA1c assay performed by an ion-exchange chromatography method that is certified traceable to the DCCT. Kalyani Chely [place] KITCHEN DESIGNER LAB BLOOD ORDERABLES Final Re sult Performing Organization Address [facility] Co de Phone Number [facility] [address] [place] [address] * (ABNORMAL) Lipid Profile, Plasma (07/22/2022 8:17 AM EDT) Fasting greater than or equal to 8 hours? Yes 07/22/2022 1:47 PM EDT [facility] Cholesterol, Plasma 121 <200 mg/dL 07/22/2022 1:47 PM EDT [facility] Comment: Cholesterol Reference Range (age >17 years): Desirable? <200 mg/dL Borderline? 200 to 239 mg/dL Undesirable? >239 mg/dL HDL 42 >=40 mg/dL 07/22/2022 1:47 PM EDT [facility] Comment: HDL Cholesterol Reference Ranges (age >17 years): Female, acceptable? > or = 50 mg/dL Male, acceptable? > or = 40 mg/dL Triglycerides, Plasma 216(H) <150 mg/dL 07/22/2022 1:47 PM EDT [facility] Comment: Triglyceride Reference Range (age >17 years): Desirable:?? <150 mg/dL Borderline high:?? 150 to 199 mg/dL High:?? 200 to 499 mg/dL Very high:?? >499 mg/dL Increased risk of pancreatitis:?? >1000 mg/dL Cholesterol/HDL Ratio 3 07/22/2022 1:47 PM EDT [facility] LDL, Calculated 35.8 <100 mg/dL 1:47 PM EDT [facility] Comment: LDL Cholesterol Reference Range (age >17 years): Optimal: ??<100 mg/dL Near or above optimal: 100 - 129 mg/dL Borderline high: 130 - 159 mg/dL High: 160 - 189 mg/dL Very high: >189 mg/dL LDL Cholesterol Reference Range (age <18 years): Desirable: ? <110 mg/dL Borderline: ?110 - 129 mg/dL Undesirable: ?? >130 mg/dL Blood Venous blood specimen / Unknown Venipuncture / Unknown 07/22/2022 8:17 AM EDT 07/22/2022 8:20 AM EDT us Kalyani Sullivan KITCHEN DESIGNER LAB BLOOD ORDERABLES Final Re sult [facility] [address] [place] [address] * (ABNORMAL) CBC and Differential (07/22/2022 8:17 AM EDT) [facility] WBC Count 7.44 3.70 - 10.30 10*3/uL LAB HEMATOLOGY METHOD 07/22/2022 1:31 PM EDT [facility] RBC Count 4.56(L) 4.60 - 6.10 10*6/uL LAB HEMATOLOGY METHOD 07/22/2022 1:31 PM EDT [facility] HGB 14.0 13.7 - 17.5 g/dL LAB HEMATOLOGY METHOD 07/22/2022 1:31 PM EDT [facility] HCT 40.6 40.0 - 51.0 % LAB HEMATOLOGY METHOD 07/22/2022 1:31 PM EDT [facility] Platelet Count 186 155 - 369 10*3/uL LAB HEMATOLOGY METHOD 07/22/2022 1:31 PM EDT [facility] MCV 89 79 - 98 fL LAB HEMATOLOGY METHOD 07/22/2022 1:31 PM EDT [facility] MCH 30.7 26.0 - 32.0 pg LAB HEMATOLOGY METHOD 07/22/2022 1:31 PM EDT [facility] MCHC 34.5 30.7 - 35.5 g/dL LAB HEMATOLOGY METHOD 07/22/2022 1:31 PM EDT [facility] RDW 11.8 11.5 - 14.5 % LAB HEMATOLOGY METHOD 07/22/2022 1:31 PM EDT [facility] MPV 11.9 8.8 - 12.5 fL LAB HEMATOLOGY METHOD 07/22/2022 1:31 PM EDT [facility] nRBC 0.0 <=0.0 per 100 WBCs LAB HEMATOLOGY METHOD 07/22/2022 1:31 PM EDT [facility] Differential Type Automated LAB HEMATOLOGY METHOD 07/22/2022 1:31 PM EDT [facility] Neutrophils % 64.0 % LAB HEMATOLOGY METHOD 07/22/2022 1:31 PM EDT [facility] Lymphocytes % 24.0 % LAB HEMATOLOGY METHOD 07/22/2022 1:31 PM EDT [facility] Monocytes % 7.0 % LAB HEMATOLOGY METHOD 07/22/2022 1:31 PM EDT [facility] Eosinophils % 4.0 % LAB HEMATOLOGY METHOD 07/22/2022 1:31 PM EDT [facility] Basophils % 1.0 % LAB HEMATOLOGY METHOD 07/22/2022 1:31 PM EDT [facility] Immature Granulocytes % 0.0 % LAB HEMATOLOGY METHOD 07/22/2022 1:31 PM EDT [facility] Neutrophils Absolute 4.78 1.60 - 6.10 10*3/uL LAB HEMATOLOGY METHOD 07/22/2022 1:31 PM EDT [facility] Lymphocytes Absolute 1.81 1.20 - 3.90 10*3/uL LAB HEMATOLOGY METHOD 07/22/2022 1:31 PM EDT [facility] Monocytes Absolute 0.48 0.30 - 0.90 10*3/uL LAB HEMATOLOGY METHOD 07/22/2022 1:31 PM EDT [facility] Eosinophils Absolute 0.26 0.00 - 0.50 10*3/uL LAB HEMATOLOGY METHOD 07/22/2022 1:31 PM EDT [facility] Basophils Absolute 0.08 0.00 - 0.10 10*3/uL LAB HEMATOLOGY METHOD 07/22/2022 1:31 PM EDT [facility] Immature Granulocytes Absolute 0.03 0.00 - 0.06 10*3/uL LAB HEMATOLOGY METHOD 07/22/2022 1:31 PM EDT [facility] Blood Venous blood specimen / Unknown Venipuncture / Unknown 07/22/2022 8:17 AM EDT 07/22/2022 8:20 AM EDT Narrative [facility] - 07/22/2022 1:31 PM EDT Therapeutic decision making should be based on absolute values, rather than percentages. us Kalyani Sullivan KITCHEN DESIGNER LAB BLOOD ORDERABLES Final Re sult [facility] [address] [place] [address] * (ABNORMAL) Comprehensive Metabolic Panel, Plasma (07/22/2022 8:17 AM EDT) [facility] Glucose, Plasma 133(H) 74 - 99 mg/dL 07/22/2022 1:47 PM EDT [facility] BUN, Plasma 12 7 - 21 mg/dL 07/22/2022 1:47 PM EDT [facility] Creatinine, Plasma 1.05 0.80 - 1.30 mg/dL 07/22/2022 1:47 PM EDT [facility] BUN/Creatinine Ratio 11 07/22/2022 1:47 PM EDT [facility] Sodium, Plasma 144 136 - 145 mmol/L 07/22/2022 1:47 PM EDT [facility] Potassium, Plasma 4.2 3.7 - 4.8 mmol/L 07/22/2022 1:47 PM EDT [facility] Chloride, Plasma 108(H) 97 - 107 mmol/L 07/22/2022 1:47 PM EDT [facility] CO2, Plasma 26 22 - 29 mmol/L 07/22/2022 1:47 PM EDT [facility] Anion Gap 10 6 - 16 mmol/L 07/22/2022 1:47 PM EDT [facility] Total Calcium, Plasma 9.8 8.9 - 10.2 mg/dL 07/22/2022 1:47 PM EDT [facility] Total Protein 7.3 6.3 - 7.9 g/dL 07/22/2022 1:47 PM EDT [facility] Albumin, Plasma 4.9 3.5 - 5.2 g/dL 07/22/2022 1:47 PM EDT [facility] AST, Plasma 23 12 - 40 U/L 07/22/2022 1:47 PM EDT [facility] ALT, Plasma 33 11 - 41 U/L 07/22/2022 1:47 PM EDT [facility] Alkaline Phosphatase, Plasma 56 40 - 115 U/L 07/22/2022 1:47 PM EDT [facility] Total Bilirubin, Plasma 0.4 0.2 - 1.1 mg/dL 07/22/2022 1:47 PM EDT [facility] eGFRcr 86.5 mL/min/1.7 3m*2 07/22/2022 1:47 PM EDT [facility] Comment: Reported eGFRcr in mL/min/1.73m2 is based the CKD-EPI 2020 equation that does not use a race coefficient. Effective 11/10/21 our laboratory changed the eGFR calculation to the CKD-EPI 2020 equation from the previously reported eGFR, based on the MDRD equation. ??For comparisons between the two equations, please see laboratory website: ??[email or web address] Blood Venous blood specimen / Unknown Venipuncture / Unknown 07/22/2022 8:17 AM EDT 07/22/2022 8:20 AM EDT us Kalyani Sullivan APRN LAB BLOOD ORDERABLES Final Re sult [facility] [address] [place] [address] documented in this encounter Visit Diagnoses Diagnosis Prostate cancer screening- Primary Special screening for malignant neoplasm of prostate Generalized anxiety disorder Primary hypertension Unspecified essential hypertension Controlled type 2 diabetes mellitus without complication, without long-term current use of insulin (CMS/HCC) Hypertriglyceridemia Pure hyperglyceridemia Uncontrolled type 2 diabetes mellitus with hyperglycemia (CMS/HCC) documented in this encounter Additional Health Concerns Assessment Noted Time A fall risk assessment has been complete d for the patient 07/22/2022 7:35 AM EDT A Body Mass Index follow-up plan has been documented for the patient 07/22/2022 8:32 AM EDT documented as of this encounter Care Teams Metalizer Relationship Specialty Start Date End Date Kalyani Sullivan APRN [address] [place] [id number] PCP - General 08/28/20 documented as of this encounter
--- OUTSIDE RECORDS SUMMARY | 2024-03-06 17:42 | XMS_ITS | Encounter Summary ---
Author Organization [facility] Address [address] [place] [address] Care Team Providers Care Welding Machine Operator Helper Gas Name Role Phone Unavailable Primary Care Provider Unavailabl e Encounter Details Date Type Department Care Team (Late st Contact Info) Description 11/29/2016 [facility] Vitals Encounter [facility] [address] [place] [address] ProviderGlenn MD [facility] [place] [id number] Social History Tobacco Use Types Packs/Day Years Used Date Smoking Tobacco: Never Assessed Sex and Gender Information Value Date Recorded Sex Assigned at Not on file Legal Sex Male 7:58 PM EDT Gender Identity Male 06/18/2021 4:33 AM EST Sexual Orientation Not on file documented as of this encounter Last Filed Vital Signs Vital Sign Reading Time Taken Comments Blood Pressure - - Pulse - - Temperature - - Respiratory Rate - - Oxygen Saturation - - Inhaled Oxygen Concentration - - Weight 109 kg (239 lb 15.9 oz) 11/29/2016 8:35 A M EDT Height 175.3 cm (5' 9 ) 11/29/2016 8:35 AM EDT Body Mass Index 35.44 11/29/2016 8:35 AM EDT documented in this encounter Plan of Treatment Not on file documented as of this encounter Visit Diagnoses Not on filedocumented in this encounter
--- OUTSIDE RECORDS SUMMARY | 2024-03-06 17:42 | XMS_ITS | Encounter Summary ---
Author Organization [facility] Address [address] [id number] Care Team Providers Care Home Health Care Provider Name Role Phone Kalyani Sullivan WEED COOKING OPERATOR Primary Care Provider [phone] Reason for Visit * Reason Comments Med Refill Encounter Details Date Type Department Care Team (Late st Contact Info) Description 06/17/2021 Refill [facility] [address] [place] [address] Kalyani Sullivan, WEED COOKING OPERATOR [address] [place] [address] Social History Tobacco Use Types Packs/Day Years Used Date Smoking Tobacco: Never Assessed Sex and Gender Information Value Date Recorded Sex Assigned at Not on file Legal Sex Male 7:58 PM EDT Gender Identity Male 06/18/2021 4:33 AM EST Sexual Orientation Not on file documented as of this encounter Miscellaneous Notes * Telephone Encounter - Tiffanie Vargas - 06/17/2021 1:44 PM EST Per protocol, 1 medication, paroxetine, has been approved for 90 day supply with 0 refills. The medication refill request has been sent to [facility] pharmacy. Must keep upcoming appointment 06/23/2021 for additional refills. documented in this encounter Plan of Treatment Not on file documented as of this encounter Visit Diagnoses Not on filedocumented in this encounter Care Teams Home Health Care Provider Relationship Specialty Start Date End Date Kalyani Sullivan, WEED COOKING OPERATOR [address] [place] [address] PCP - General 08/28/20 documented as of this encounter
--- OUTSIDE RECORDS SUMMARY | 2024-03-06 17:42 | XMS_ITS | Encounter Summary ---
Author Organization [facility] Address [address] [place] [address] Care Team Providers Care Medical Coordinator Pesticide Use Name Role Phone Kalyani Sullivan APRN Primary Care Provider [phone] Encounter Details Date Type Department Care Team (Latest Contact Info) Description 07/15/2022 Travel Social History Tobacco Use Types Packs/Day [...] suspected to have Coronavirus/COVID-19? No / Unsure 07/15/2022 1:52 PM EDT documented as of this encounter Plan of Treatment Not on file documented as of this encounter Visit Diagnoses Not on filedocumented in this encounter Care Teams Medical Coordinator Pesticide Use Relationship Specialty Start Date End Date Kalyani Sullivan APRN [address] [place] [address] PCP - General 08/28/20 documented as of this encounter
--- OUTSIDE RECORDS SUMMARY | 2024-03-06 17:42 | XMS_ITS | Encounter Summary ---
Author Organization [facility] Address [address] [place] [address] Care Team Providers Care Breaker Up Machine Operator Name Role Phone Unavailable Primary Care Provider Unavailabl e Encounter Details Date Type Department Care Team (Late st Contact Info) Description 12/30/2015 Legacy AEHR Vitals Encounter [facility] OUTPATIENT CONVERSIONS [address] [place] [address] ProviderGlenn MD [facility] [place] [phone] Social History Tobacco Use Types Packs/Day Years [...] - Inhaled Oxygen Concentration - - Weight 104 kg (230 lb 0.1 oz) 12/30/2015 8:09 AM EDT Height 175.3 cm (5' 9 ) 12/30/2015 8:09 AM EDT Body Mass Index 33.97 12/30/2015 8:09 AM EDT documented in this encounter Plan of Treatment Not on file documented as of this encounter Visit Diagnoses Not on filedocumented in this encounter
--- OUTSIDE RECORDS SUMMARY | 2024-03-06 17:42 | XMS_ITS | Encounter Summary ---
Author Organization [facility] Address [address] [place] [address] Care Team Providers Care Belt Tender Name Role Phone Kalyani Sullivan APRN Primary Care Provider [phone] Encounter Details Date Type Department Care Team (Latest Contact Info) Description 07/19/2022 Travel Social History Tobacco Use Types Packs/Day [...] on filedocumented in this encounter Care Teams Belt Tender Relationship Specialty Start Date End Date Kalyani Sullivan APRN [address] [place] [phone] PCP - General 08/28/20 documented as of this encounter
--- OUTSIDE RECORDS SUMMARY | 2024-03-06 17:42 | XMS_ITS | Encounter Summary ---
Author Organization [facility] Address [address] [place] [address] Care Team Providers Care Attorney At Law Name Role Phone Kalyani Sullivan TRAVEL MED SURG RN Primary Care Provider [phone] Reason for Visit * Reason Comments Med Refill Encounter Details Date Type Department Care Team (Late st Contact Info) Description 07/19/2022 Refill [facility] [address] [place] [address] Kalyani Sullivan, TRAVEL MED SURG RN [address] [place] [address] Uncontrolled type 2 diabetes mellitus with hyperglycemia ([facility]/HCC) Social History Tobacco Use Types Packs/Day Years [...] PM EDT documented as of this encounter Miscellaneous Notes * Telephone Encounter - Jae Broderick - 07/20/2022 1:11 PM EDT Per protocol, 1 medication(s), Trulicity 3 mg/0.5 ml , has been refused due to: Refill not appropriate Patient has appointment on 07/22/2022 Please keep upcoming appointment for additional refills. Medications have been pended for refill atupcoming appointment. documented in this encounter Plan of Treatment Not on file documented as of this encounter Visit Diagnoses Diagnosis Uncontrolled type 2 diabetes mellitus with hyperglycemia (CMS/[facility]) documented in this encounter Care Teams Attorney At Law Relationship Specialty Start Date End Date Kalyani Sullivan, TRAVEL MED SURG RN [address] [place] [address] PCP - General 08/28/20 documented as of this encounter
--- OUTSIDE RECORDS SUMMARY | 2024-03-06 17:42 | XMS_ITS | Encounter Summary ---
Author Organization [facility] Address [address] [place] [address] Care Team Providers Care Surveillance Dual Rate Officer Name Role Phone Unavailable Primary Care Provider Unavailabl e Encounter Details Date Type Department Care Team (Late st Contact Info) Description 09/23/2015 Legacy AEHR Vitals Encounter [facility] OUTPATIENT CONVERSIONS [address] [place] [address] ProviderGlenn MD [facility] [place] [phone] Social History Tobacco Use Types Packs/Day Years [...] - Inhaled Oxygen Concentration - - Weight 105 kg (232 lb 0.2 oz) 09/23/2015 3:16 PM EDT Height 175.3 cm (5' 9 ) 09/23/2015 3:16 PM EDT Body Mass Index 34.26 09/23/2015 3:16 PM EDT documented in this encounter Plan of Treatment Not on file documented as of this encounter Visit Diagnoses Not on filedocumented in this encounter
--- OUTSIDE RECORDS SUMMARY | 2024-03-06 17:42 | XMS_ITS | Encounter Summary ---
Author Organization [facility] Address [address] [place] [address] Care Team Providers Care Machine Operator Hop Picker Name Role Phone Unavailable Primary Care Provider Unavailabl e Encounter Details Date Type Department Care Team (Late st Contact Info) Description 11/25/2015 Legacy AEHR Vitals Encounter [facility] OUTPATIENT CONVERSIONS [address] [place] [address] ProviderGlenn MD [facility] [place] [phone] Social History Tobacco Use Types Packs/Day Years [...] - Inhaled Oxygen Concentration - - Weight 106 kg (232 lb 12.9 oz) 11/25/2015 8:01 A M EDT Height 175.3 cm (5' 9 ) 11/25/2015 8:01 AM EDT Body Mass Index 34.38 11/25/2015 8:01 AM EDT documented in this encounter Plan of Treatment Not on file documented as of this encounter Visit Diagnoses Not on filedocumented in this encounter
--- OUTSIDE RECORDS SUMMARY | 2024-03-06 17:42 | XMS_ITS | Encounter Summary ---
Author Organization [facility] Address [address] [place] [address] Care Team Providers Care Campus Administrator Name Role Phone Kalyani Sullivan SPACE AND MISSILE OPERATIONS Primary Care Provider [phone] Encounter Details Date Type Department Care Team (Late st Contact Info) Description 08/18/2022 Refill [facility] [address] [place] [address] Kalyani Sullivan, SPACE AND MISSILE OPERATIONS [address] [place] [address] Generalized anxiety disorder Social History [...] AM EDT documented as of this encounter Miscellaneous Notes * Telephone Encounter - Caro Horan - 08/18/2022 9:13 AM EDT Resent prescription(s) to [facility] pharmacy due to: Patient requested to switch pharmacies. Confirmed script(s) is cancelled at original pharmacy. Medication(s): Paroxetine Additional Info: Rx cancelled at [facility] documented in this encounter Plan of Treatment [...] documented as of this encounter Care Teams Campus Administrator Relationship Specialty Start Date End Date Kalyani Sullivan APRN [address] [place] [address] PCP - General 08/28/20 documented as of this encounter
--- OUTSIDE RECORDS SUMMARY | 2024-03-06 17:42 | XMS_ITS | Encounter Summary ---
Author Organization [facility] Address [address] [place] [address] Care Team Providers Care Travel Pta Name Role Phone Kalyani Sullivan INSPECTOR METAL CAN Primary Care Provider [phone] Reason for Visit * Reason Onset Date Comments Med Refill 08/18/2022 Encounter Details Date Type Department Care Team (Late st Contact Info) Description 08/18/2022 Refill [facility] [address] [place] [address] Kalyani Sullivan, INSPECTOR METAL CAN [address] [place] [address] Uncontrolled type 2 diabetes mellitus [...] * Telephone Encounter - Caro Horan - 08/19/2022 12:56 PM EDT Resent prescription(s) to [facility] pharmacy due to: Prescription(s) not received by pharmacy. Medication(s): Trulicity 3mg Additional Info: sent 07/22/22 and electronically confirmed but pharmacy states they did not receive it documented in this encounter Plan of Treatment [...] documented as of this encounter Care Teams Travel Pta Relationship Specialty Start Date End Date Kalyani Sullivan, INSPECTOR METAL CAN [address] [place] [address] PCP - General 08/28/20 documented as of this encounter
--- OUTSIDE RECORDS SUMMARY | 2024-03-06 17:42 | XMS_ITS | Encounter Summary ---
Author Organization [facility] Address [address] [place] [address] Care Team Providers Care Travel Occupational Therapist Name Role Phone Kalyani Sullivan APRN Primary Care Provider [phone] Encounter Details Date Type Department Care Team (Late st Contact Info) Description 10/22/2021 Telephone Family and Community Medicine [address] [place] [address] Kalyani Sullivan APRN [address] [place] [address] Social History Tobacco Use Types [...] encounter Miscellaneous Notes * Telephone Encounter - Kathi Rosas MA - 10/22/2021 4:05 PM EDT Patient called and informed that his medication was approved. documented in this encounter Plan of Treatment Not on file documented as of this encounter Visit Diagnoses Not on filedocumented in this encounter Care Teams Travel Occupational Therapist Relationship Specialty Start Date End Date Kalyani Sullivan APRN [address] [place] [address] PCP - General 08/28/20 documented as of this encounter
--- OUTSIDE RECORDS SUMMARY | 2024-03-06 17:42 | XMS_ITS | Encounter Summary ---
Author Organization [facility] Address [address] [place] [address] Care Team Providers Care Product Line Manager Name Role Phone Kalyani Sullivan APRN Primary Care Provider [phone] Encounter Details Date Type Department Care Team (Late st Contact Info) Description 06/25/2021 Orders Only Family and Community Medicine [address] [place] [address] Kalyani Sullivan APRN [address] [place] [address] Uncontrolled type 2 diabetes mellitus [...] Exposure Response Date Recorded In the last month, have you been in contact with someone who was confirmed or suspected to have Coronavirus / COVID-19? No / Unsure 06/23/2021 7:51 AM EST documented as of this encounter Plan of Treatment Not on file documented as of this encounter Visit Diagnoses Diagnosis Uncontrolled type 2 diabetes mellitus with hyperglycemia (CMS/HCC)- Primary documented in this encounter Care Teams Product Line Manager Relationship Specialty Start Date End Date Kalyani Sullivan APRN [address] [place] [address] PCP - General 08/28/20 documented as of this encounter
--- OUTSIDE RECORDS SUMMARY | 2024-03-06 17:42 | XMS_ITS | Encounter Summary ---
Author Organization [facility] Address [address] [place] [address] Care Team Providers Care Columnist Name Role Phone Kalyani Sullivan APRN Primary Care Provider [phone] Encounter Details Date Type Department Care Team (Latest Contact Info) Description 08/05/2021 Travel Social History Tobacco Use Types Packs/Day [...] suspected to have Coronavirus/COVID-19? No / Unsure 08/05/2021 8:25 AM EDT documented as of this encounter Plan of Treatment Not on file documented as of this encounter Visit Diagnoses Not on filedocumented in this encounter Care Teams Columnist Relationship Specialty Start Date End Date Kalyani Sullivan APRN [address] [place] [phone] PCP - General 08/28/20 documented as of this encounter
--- OUTSIDE RECORDS SUMMARY | 2024-03-06 17:42 | XMS_ITS | Encounter Summary ---
Author Organization [facility] Address [address] [place] [address] Care Team Providers Care Payroll Accounting Manager Name Role Phone Kalyani Sullivan PAYROLL EXAMINER Primary Care Provider [phone] Reason for Visit * Reason Comments Med Refill Encounter Details Date Type Department Care Team (Late st Contact Info) Description 12/19/2020 Refill [facility] [address] [place] [address] Kalyani Sullivan, PAYROLL EXAMINER [address] [place] [address] Social History Tobacco Use Types Packs/Day Years Used Date Smoking Tobacco: Never Assessed Sex and Gender Information Value Date Recorded Sex Assigned at Not on file Legal Sex Male 7:58 PM EDT Gender Identity Male 06/18/2021 4:33 AM EST Sexual Orientation Not on file documented as of this encounter Miscellaneous Notes * Telephone Encounter - Soham Vargas, Elementary Tutor - 12/22/2020 6:14 PM EDT Approved Paroxetine 20MG for refill per protocol for #90 and 1 refill. Rx sent to [id number] in [place], [place]. documented in this encounter Plan of Treatment Not on file documented as of this encounter Visit Diagnoses Not on filedocumented in this encounter Care Teams Payroll Accounting Manager Relationship Specialty Start Date End Date Kalyani Sullivan PAYROLL EXAMINER [address] [place] [address] PCP - General 08/28/20 documented as of this encounter
--- OUTSIDE RECORDS SUMMARY | 2024-03-06 17:42 | XMS_ITS | Encounter Summary ---
Author Organization [facility] Address [address] [place] [address] Care Team Providers Care Real Estate Subagent Name Role Phone Kalyani Sullivan Chely EASTMAN Primary Care Provider [phone] Encounter Details Date Type Department Care Team (Late st Contact Info) Description 08/03/2020 [facility] AEHR Encounter [facility] [address] [place] [address] Provider, MD Glenn [address] [place] [address] Social History Tobacco Use Types Packs/Day Years [...] Procedure Name Priority Date/Time Associated Diagnosis Comments POCT GLYCOSYLATED HEMOGLOBIN (HGB A1C) Routine 08/03/2020 10:27 AM EDT documented in this encounter Results * CYNTHIA Hemoglobin A1C (08/03/2020 10:27 AM EDT) POCT Hemoglobin A1C 6.2 [facility] 08/03/2020 10:2 7 AM EDT Narrative [facility] - 08/03/2020 10:27 AM EDT Resulting Agency - AEHR POC [[facility]] us Historical Provider POINT OF CARE TEST ENTER/ EDIT ORDERABLES Final Result [facility] documented in this encounter Visit Diagnoses Not on filedocumented in this encounter Care Teams Real Estate Subagent Relationship Specialty Start Date End Date Kalyani Sullivan, ADOLESCENT PSYCHIATRIST [address] [place] [address] PCP - General 08/28/20 documented as of this encounter
--- OUTSIDE RECORDS SUMMARY | 2024-03-06 17:42 | XMS_ITS | Encounter Summary ---
Author Organization [facility] Address [address] [place] [address] Care Team Providers Care Appraiser Auditor Name Role Phone Kalyani Sullivan TOBY MAKER Primary Care Provider [phone] Reason for Visit * Reason Comments Med Refill Encounter Details Date Type Department Care Team (Late st Contact Info) Description 09/27/2023 Refill [facility] [address] [place] [address] Kalyani Sullivan, TOBY MAKER [address] [place] [address] Uncontrolled type 2 diabetes mellitus [...] Miscellaneous Notes * Telephone Encounter - Jony Santiago, PharmD - 09/28/2023 1:37 PM EDT Per protocol, 1 medication(s), Trulicity, has been approved for 84 day supply with 2 refill(s) to [facility]. documented in this encounter Plan of Treatment [...] documented as of this encounter Care Teams Appraiser Auditor Relationship Specialty Start Date End Date Kalyani Sullivan APRN [address] [place] [phone] PCP - General 08/28/20 documented as of this encounter
--- OUTSIDE RECORDS SUMMARY | 2024-03-06 17:42 | XMS_ITS | Encounter Summary ---
Author Organization [facility] Address [address] [place] [id number] Care Team Providers Care Oracle Manager Name Role Phone Kalyani Sullivan APRN Primary Care Provider [phone] Encounter Details Date Type Department Care Team (Late st Contact Info) Description 09/27/2022 Orders Only [facility] [address] [place] [address] Kalyani Sullivan APRN [address] [place] [address] Generalized anxiety disorder (Primary Dx) [...] documented as of this encounter Care Teams Oracle Manager Relationship Specialty Start Date End Date Kalyani Sullivan APRN [address] [place] [address] PCP - General 08/28/20 documented as of this encounter
--- OUTSIDE RECORDS SUMMARY | 2024-03-06 17:42 | XMS_ITS | Encounter Summary ---
Author Organization [facility] Address [address] [place] [id number] Care Team Providers Care Refuse Collector Name Role Phone Kalyani Sullivan CLOTH FINISHING RANGE BACK TENDER Primary Care Provider [phone] Encounter Details Date Type Department Care Team (Late st Contact Info) Description 11/11/2021 Refill [facility] [address] [place] [address] Kalyani Sullivan, CLOTH FINISHING RANGE BACK TENDER [address] [place] [address] Uncontrolled type 2 diabetes mellitus with hyperglycemia ([facility]/HCC); Primary hypertension; Controlled type 2 diabetes mellitus without complication, without long-term current use of insulin ([facility]); Hypertriglyceridemia Social History Tobacco Use Types Packs/Day Years [...] encounter Miscellaneous Notes * Telephone Encounter - Carla Smith, PharmD - 11/12/2021 9:14 AM EDT Per protocol, 5 medication(s), trulicity, fenofibrate, losartan, metformin and pravastatin, has been approved for 90 day supply with 2 refill(s). The medication refill request(s) have been sent to [facility] pharmacy. documented in this encounter Plan of Treatment Not on file documented as of this encounter Visit Diagnoses Diagnosis Uncontrolled type 2 diabetes mellitus with hyperglycemia ([facility]) Primary hypertension Unspecified essential hypertension Controlled type 2 diabetes mellitus without complication, without long-term current use of insulin ([facility]) Hypertriglyceridemia Pure hyperglyceridemia documented in this encounter Care Teams Refuse Collector Relationship Specialty Start Date End Date Kalyani Sullivan APRN [address] [place] [address] PCP - General 08/28/20 documented as of this encounter
--- OUTSIDE RECORDS SUMMARY | 2024-03-06 17:42 | XMS_ITS | Encounter Summary ---
Author Organization [facility] Address [address] [place] [address] Care Team Providers Care Sand Hauler Name Role Phone Kalyani Sullivan APRN Primary Care Provider [phone] Encounter Details Date Type Department Care Team (Latest Contact Info) Description 06/23/2021 Travel Social History Tobacco Use Types Packs/Day [...] on filedocumented in this encounter Care Teams Sand Hauler Relationship Specialty Start Date End Date Kalyani Sullivan APRN [address] [place] [phone] PCP - General 08/28/20 documented as of this encounter
--- OUTSIDE RECORDS SUMMARY | 2024-03-06 17:42 | XMS_ITS | Encounter Summary ---
Author Organization [facility] Address [address] [place] [address] Care Team Providers Care Counter Hand Name Role Phone Unavailable Primary Care Provider Unavailabl e Encounter Details Date Type Department Care Team (Late st Contact Info) Description 08/10/2016 Legacy AEHR Vitals Encounter [facility] OUTPATIENT CONVERSIONS [address] [place] [address] ProviderGlenn MD [facility] [place] [phone] Social History Tobacco Use Types Packs/Day Years [...] - Inhaled Oxygen Concentration - - Weight 107 kg (236 lb) 08/10/2016 7:41 AM EDT Height 175.3 cm (5' 9 ) 08/10/2016 7:41 AM EDT Body Mass Index 34.85 08/10/2016 7:41 AM EDT documented in this encounter Plan of Treatment Not on file documented as of this encounter Visit Diagnoses Not on filedocumented in this encounter
--- OUTSIDE RECORDS SUMMARY | 2024-03-06 17:42 | XMS_ITS | Encounter Summary ---
Author Organization [facility] Address [address] [place] [address] Care Team Providers Care Computer Technology Trainer Name Role Phone Kalyani Sullivan APRN Primary Care Provider [phone] Encounter Details Date Type Department Care Team (Latest Contact Info) Description 07/22/2022 Travel Social History Tobacco Use Types Packs/Day [...] documented as of this encounter Care Teams Computer Technology Trainer Relationship Specialty Start Date End Date Kalyani Sullivan APRN [facility] [address] PCP - General 08/28/20 documented as of this encounter
--- OUTSIDE RECORDS SUMMARY | 2024-03-06 17:42 | XMS_ITS | Encounter Summary ---
Author Organization [facility] Address [address] [place] [address] Care Team Providers Care Design Printer Balloon Name Role Phone Kalyani Sullivan CRISIS MENTAL HEALTH THERAPIST Primary Care Provider [phone] Reason for Visit * Reason Comments Med Refill Encounter Details Date Type Department Care Team (Late st Contact Info) Description 10/20/2021 Refill [facility] [address] [place] [address] Kalyani Sullivan, CRISIS MENTAL HEALTH THERAPIST [address] [place] [address] Type 2 diabetes mellitus without complications (CMS/HCC) Social History Tobacco Use Types Packs/Day [...] encounter Miscellaneous Notes * Telephone Encounter - Jonathan Woodward, PharmD - 10/24/2021 10:18 PM EDT Per protocol, 1 medication(s), metformin, has been refused due to: Duplicate request documented in this encounter Plan of Treatment Not on file documented as of this encounter Visit Diagnoses Diagnosis Type 2 diabetes mellitus without complications (CMS/HCC) documented in this encounter Care Teams Design Printer Balloon Relationship Specialty Start Date End Date Kalyani Sullivan, CRISIS MENTAL HEALTH THERAPIST [address] [place] [address] PCP - General 08/28/20 documented as of this encounter
--- OUTSIDE RECORDS SUMMARY | 2024-03-06 17:42 | XMS_ITS | Encounter Summary ---
Author Organization [facility] Address [address] [place] [address] Care Team Providers Care Bill Poster Installer Name Role Phone Kalyani Sullivan ADMINISTRATIVE JUDGE Primary Care Provider [phone] Reason for Visit * Reason Comments Annual Exam Encounter Details Date Type Department Care Team (Latest Contact Info) Description 07/14/2023 8:20 AM EDT Office Visit [facility] [address] [place] [address] Kalyani Sullivan ADMINISTRATIVE JUDGE [address] [place] [address] Encounter for immunization (Primary Dx); Uncontrolled type 2 diabetes mellitus with hyperglycemia (CMS/HCC); Controlled type 2 diabetes mellitus without complication, without long-term current use of insulin (CMS/HCC); Hypertriglyceridemia; Primary hypertension; Generalized anxiety disorder; Healthcare maintenance Social History Tobacco Use Types Packs/Day Years [...] Pressure 132/82 07/14/2023 8:14 AM EDT Pulse 76 07/14/2023 8:14 AM EDT Temperature - - Respiratory Rate - - Oxygen Saturation 96% 07/14/2023 8:14 AM EDT Inhaled Oxygen Concentration - - Weight 105 kg (231 lb 12.8 oz) 07/14/2023 8:14 A M EDT Height 177.8 cm (5' 10 ) 07/14/2023 8:14 AM EDT Body Mass Index 33.26 07/14/2023 8:14 AM EDT documented in this encounter Miscellaneous Notes * Clinician Note - Sara Givens, PharmD - 07/14/2023 8:20 AM EDT Pre-Visit Review Note The following information was reviewed with patient via phone prior to appointment with Kalyani Mittal 07/14/2023. Allergies: reviewed and updated as needed Penicillins (reaction unknown) Immunizations: reviewed and updated as needed Recommended Shingrix vaccine. Patient interested in receiving vaccine at office visit. Recommended Flu vaccine. Patient declines at this time. Medications: reviewed and updated as needed Krill Oil: Patient no longer taking (Flagged for removal) Zinc gluconate: Patient no longer taking (Flagged for removal) Names of Pended Medications: Pravastatin Losartan Metformin XR Fenofibrate Fluoxetine Clinical Intervention: Immunization recommendations See immunizations above Preferred Pharmacy: [facility] Additional Notes: Patient is interested in receiving Shingrix vaccine at office visit. He would like to discuss his issue of chronic fatigue with provider. Patient verbalized understanding of Pre-Visit Review. Patient to follow up with provider at upcoming clinic visit. Sara Givens, DanielD, Pharmacy Patient Support Services * Progress Notes - Kalyani Sullivan APRN - 07/14/2023 8:20 AM EDT Subjective Patient ID: Mike Celis is a 52 y.o. male. Chief Complaint Patient presents with Annual Exam 52 year old male here for health maintenance exam. Gets yearly eye exam. No new hearing loss. Has a hearing appt coming up. Sees dentist regularly. Trying to eat healthy. Avoiding sugar. Drinks water and coffee. Walks 3-4 miles a day at work. Does work around the house. Feels mood is good. Notices at end of work day he feels drained. Will take a nap at home. Feels fine at work. Does snore but thinks he sleeps well. The following portions of the chart were reviewed this encounter and updated as appropriate: Tobacco Allergies Meds Problems Med Hx Surg Hx Fam Hx Current Outpatient Medications: dulaglutide (Trulicity) 3 MG/0.5ML inj. pen, Inject 3 mg once a week subcutaneously., Disp: 6 mL, Rfl: 1 Fenofibrate 50 MG capsule, Take 1 capsule once a day with a meal, Disp: 90 capsule, Rfl: 3 FLUoxetine (PROzac) 20 MG capsule, Take 1 capsule (20 mg) by mouth 1 (one) time each day., Disp: 90capsule, Rfl: 3 losartan (Cozaar) 25 MG tablet, Take 1 tablet (25 mg) by mouth 1 (one) time each day., Disp: 90 tablet, Rfl: 3 metFORMIN XR (Glucophage-XR) 500 MG 24 hr tablet, TAKE 1 TABLET TWICE A DAY WITH MEALS (DO NOT CRUSH, CHEW OR SPLIT), Disp: 180 tablet, Rfl: 3 pravastatin (Pravachol) 80 MG tablet, Take 1 tablet (80 mg) by mouth 1 (one) time each day., Disp: 90 tablet, Rfl: 3 Current Facility-Administered Medications: zoster vaccine-recombinant adjuvanted (Shingrix) 50 MCG/0.5ML vaccine 50 mcg, 0.5 mL, Intramuscular, Once, Kalyani Sullivan, JAREN Objective Blood pressure 132/82, pulse 76, height 1.778 m (5' 10 ), weight 105 kg (231 lb 12.8 oz), SpO2 96 %. Body mass index is 33.26 kg/m??. Physical Exam Vitals reviewed. Constitutional: General: He is not in acute distress. Appearance: Normal appearance. HENT: Head: Normocephalic. Right Ear: Tympanic membrane, ear canal and external ear normal. Left Ear: Tympanic membrane, ear canal and external ear normal. Nose: Nose normal. Mouth/Throat: Mouth: Mucous membranes are moist. Pharynx: Oropharynx is clear. Eyes: Conjunctiva/sclera: Conjunctivae normal. Pupils: Pupils are equal, round, and reactive to light. Neck: Vascular: No carotid bruit. Cardiovascular: Rate and Rhythm: Normal rate and regular rhythm. Pulses: Normal pulses. Heart sounds: Normal heart sounds. Pulmonary: Effort: Pulmonary effort is normal. Breath sounds: Normal breath sounds. Abdominal: General: Bowel sounds are normal. Palpations: Abdomen is soft. Tenderness: There is no abdominal tenderness. Musculoskeletal: General: Normal range of motion. Cervical back: Normal range of motion. Skin: General: Skin is warm and dry. Neurological: Mental Status: He is alert and oriented to person, place, and time. Psychiatric: Mood and Affect: Mood normal. Behavior: Behavior normal. Thought Content: Thought content normal. Judgment: Judgment normal. Assessment/Plan Diagnoses and all orders for this visit: Encounter for immunization - zoster vaccine-recombinant adjuvanted (Shingrix) 50 MCG/0.5ML vaccine 50 mcg Uncontrolled type 2 diabetes mellitus with hyperglycemia (CMS/HCC) - metFORMIN XR (Glucophage-XR) 500 MG 24 hr tablet; TAKE 1 TABLET TWICE A DAY WITH MEALS (DO NOT CRUSH, CHEW OR SPLIT) Controlled type 2 diabetes mellitus without complication, without long-term current use of insulin (CMS/HCC) - metFORMIN XR (Glucophage-XR) 500 MG 24 hr tablet; TAKE 1 TABLET TWICE A DAY WITH MEALS (DO NOT CRUSH, CHEW OR SPLIT) - pravastatin (Pravachol) 80 MG tablet; Take 1 tablet (80 mg) by mouth 1 (one) time each day. - losartan (Cozaar) 25 MG tablet; Take 1 tablet (25 mg) by mouth 1 (one) time each day. - Fenofibrate 50 MG capsule; Take 1 capsule once a day with a meal - FLUoxetine (PROzac) 20 MG capsule; Take 1 capsule (20 mg) by mouth 1 (one) time each day. - zoster vaccine-recombinant adjuvanted (Shingrix) 50 MCG/0.5ML vaccine 50 mcg - Comprehensive Metabolic Panel, Plasma - CBC and Differential - Lipid Profile, Plasma - Hemoglobin A1c - Vitamin D 25 Hydroxy - Vitamin B12, Serum - Thyroid Stimulating Hormone, Plasma Hypertriglyceridemia - pravastatin (Pravachol) 80 MG tablet; Take 1 tablet (80 mg) by mouth 1 (one) time each day. - Fenofibrate 50 MG capsule; Take 1 capsule once a day with a meal - Lipid Profile, Plasma Primary hypertension - losartan (Cozaar) 25 MG tablet; Take 1 tablet (25 mg) by mouth 1 (one) time each day. Generalized anxiety disorder - FLUoxetine (PROzac) 20 MG capsule; Take 1 capsule (20 mg) by mouth 1 (one) time each day. Healthcare maintenance - metFORMIN XR (Glucophage-XR) 500 MG 24 hr tablet; TAKE 1 TABLET TWICE A DAY WITH MEALS (DO NOT CRUSH, CHEW OR SPLIT) - pravastatin (Pravachol) 80 MG tablet; Take 1 tablet (80 mg) by mouth 1 (one) time each day. - losartan (Cozaar) 25 MG tablet; Take 1 tablet (25 mg) by mouth 1 (one) time each day. - Fenofibrate 50 MG capsule; Take 1 capsule once a day with a meal - FLUoxetine (PROzac) 20 MG capsule; Take 1 capsule (20 mg) by mouth 1 (one) time each day. - zoster vaccine-recombinant adjuvanted (Shingrix) 50 MCG/0.5ML vaccine 50 mcg - Comprehensive Metabolic Panel, Plasma - CBC and Differential - Lipid Profile, Plasma - Hemoglobin A1c - Vitamin D 25 Hydroxy - Vitamin B12, Serum - Thyroid Stimulating Hormone, Plasma Other orders - zoster vaccine-recombinant adjuvanted (Shingrix) 50 MCG/0.5ML vaccine - Pyxis Override Pull The patient received dietary education because they have an above normal BMI. and The patient received exercise education because they have an above normal BMI. Age appropriate counseling and anticipatory guidance including safety, health, nutrition, development, immunizations, and injury prevention as well as risk factor reduction discussed with patient Offered sleep study but he wants to wait on that Note to patient: The Century Cures Act makes medical notes like these [...] Procedure Name Priority Date/Time Associated Diagnosis Comments VITAMIN D 25 HYDROXY Routine 07/14/2023 9:04 AM EDT Controlled type 2 diabetes mellitus without complication, without long-term current use of insulin ([facility]) Healthcare maintenance CBC WITH AUTO DIFFERENTIAL Routine 07/14/2023 9:04 AM EDT Controlled type 2 diabetes mellitus without complication, without long-term current use of insulin ([facility]) Healthcare maintenance TSH Routine 07/14/2023 9:04 AM EDT Controlled type 2 diabetes mellitus without complication, without long-term current use of insulin ([facility]) Healthcare maintenance HEMOGLOBIN A1C Routine 07/14/2023 9:04 AM EDT Controlled type 2 diabetes mellitus without complication, without long-term current use of insulin ([facility]) Healthcare maintenance VITAMIN B12, SERUM Routine 07/14/2023 9: 04 AM EDT Controlled type 2 diabetes mellitus without complication, without long-term current use of insulin ([facility]) Healthcare maintenance LIPID PROFILE, PLASMA Routine 07/14/2023 9:04 AM EDT Controlled type 2 diabetes mellitus without complication, without long-term current use of insulin ([facility]) Hypertriglyceridemi a Healthcare maintenance COMPREHENSIVE METABOLIC PANEL, PLASMA Routine 07/14/2023 9:04 AM EDT Controlled type 2 diabetes mellitus without complication, without long-term current use of insulin ([facility]) Healthcare maintenance documented in this encounter Results * Thyroid Stimulating Hormone, Plasma (07/14/2023 9:04 AM EDT) Pathologist [facility] Thyroid Stimulating Hormone, Plasma 1.87 0.40 - 4.20 uIU/mL 07/14/2023 1:19 PM EDT [facility] Blood Venous blood specimen / Unknown Venipuncture / Unknown 07/14/2023 9:04 AM EDT 07/14/2023 9:04 AM EDT us Kalyani Sullivan ADMINISTRATIVE JUDGE LAB BLOOD ORDERABLES Final Re sult Performing Organization Address [facility] de Phone Number [facility] [address] [place] [address] * Vitamin B12, Serum (07/14/2023 9:04 AM EDT) Vitamin B12, Serum 492 210 - 1,033 pg/mL 07/14/2023 1:35 PM EDT [facility] Blood Venous blood specimen / Unknown Venipuncture / Unknown 07/14/2023 9:04 AM EDT 07/14/2023 9:04 AM EDT us Kalyani Sullivan APRN LAB BLOOD ORDERABLES Final Re sult Performing Organization Address [facility] de Phone Number [facility] [address] [place] [address] * (ABNORMAL) Vitamin D 25 Hydroxy (07/14/2023 9:04 AM EDT) Vitamin D 25 Hydroxy 19.3(L) 20.0 - 80.0 ng/mL 07/14/2023 2:09 PM EDT [facility] Blood Venous blood specimen / Unknown Venipuncture / Unknown 07/14/2023 9:04 AM EDT 07/14/2023 9:04 AM EDT Narrative [facility] - 07/14/2023 2:09 PM EDT Testing performed on [employer], standardized against NIST SRM 2972. When testing samples from patients whose predominant form of vitamin D is vitamin D2, such as patients receiving vitamin D2 supplementation, results that are subtherapeutic should be confirmed with another method, such as LC-MS/MS, before being used for patient management. Vitamin D, 25-Hydroxy reference range, age 18 years and up: Deficiency: ? <12 ng/mL Insufficiency: ? 12 to 19 ng/mL Sufficiency: ?20 to 80 ng/mL Possible toxicity: ?? >100 ng/mL us Kalyani Sullivan ADMINISTRATIVE JUDGE LAB BLOOD ORDERABLES Final Re sult Performing Organization Address [facility]/ZIP Co de Phone Number [facility] [address] [place] [address] * Hemoglobin A1c (07/14/2023 9:04 AM EDT) Hemoglobin A1c 5.6 <5.7 % 07/14/2023 1:18 PM EDT [facility] Blood Venous blood specimen / Unknown Venipuncture / Unknown 07/14/2023 9:04 AM EDT 07/14/2023 9:04 AM EDT Narrative [facility] - 07/14/2023 1:18 PM EDT HA1C Interpretive Data: Diagnosis of Diabetes: Diabetic > or = 6.5% Pre-diabetic 5.7 to 6.4% Non-diabetic < or = 5.6% Glycemic Targets for Type I and Type II Diabetics: Non- Adults <7.0% Adults <6.0% Children and Adolescents <7.5% Source: ??[place] [employer]. Standards of medical care in diabetes,2017. Diabetes Care.2017:40 (suppl 1):S1-S135. HbA1c assay performed by an ion-exchange chromatography method that is certified traceable to the DCCT. us Kalyani Sullivan ADMINISTRATIVE JUDGE LAB BLOOD ORDERABLES Final Re sult Performing Organization Address [facility] de Phone Number [facility] [address] [place] [address] * Lipid Profile, Plasma (07/14/2023 9:04 AM EDT) Cholesterol, Plasma 115 <200 mg/dL 07/14/2023 1:19 PM EDT [facility] Comment: Cholesterol Reference Range (age >17 years): Desirable? <200 mg/dL Borderline? 200 to 239 mg/dL Undesirable? >239 mg/dL HDL 43 >=40 mg/dL 07/14/2023 1:19 PM EDT [facility] Comment: HDL Cholesterol Reference Ranges (age >17 years): Female, acceptable? > or = 50 mg/dL Male, acceptable? > or = 40 mg/dL Triglycerides, Plasma 142 <150 mg/dL 07/14/2023 1:19 PM EDT [facility] Comment: Triglyceride Reference Range (age >17 years): Desirable:?? <150 mg/dL Borderline high:?? 150 to 199 mg/dL High:?? 200 to 499 mg/dL Very high:?? >499 mg/dL Increased risk of pancreatitis:?? >1000 mg/dL Cholesterol/HDL Ratio 3 07/14/2023 1:19 PM EDT [facility] LDL, Calculated 47 <100 mg/dL 1:19 PM EDT [facility] Comment: LDL Cholesterol Reference Range (age >17 years): Optimal: ??<100 mg/dL Near or above optimal: 100 - 129 mg/dL Borderline high: 130 - 159 mg/dL High: 160 - 189 mg/dL Very high: >189 mg/dL LDL Cholesterol Reference Range (age <18 years): Desirable: ? <110 mg/dL Borderline: ?110 - 129 mg/dL Undesirable: ?? >130 mg/dL LDL Cholesterol is calculated using the Underwood/NIH equation. Fasting greater than or equal to 12 hours? Yes 07/14/2023 1:19 PM EDT [facility] Blood Venous blood specimen / Unknown Venipuncture / Unknown 07/14/2023 9:04 AM EDT 07/14/2023 9:04 AM EDT us Kalyani Sullivan ADMINISTRATIVE JUDGE LAB BLOOD ORDERABLES Final Re sult [facility] [address] [place] [address] * (ABNORMAL) CBC and Differential (07/14/2023 9:04 AM EDT) WBC Count 6.69 3.70 - 10.30 10*3/uL LAB HEMATOLOGY METHOD 07/14/2023 1:07 PM EDT [facility] RBC Count 4.78 4.60 - 6.10 10*6/uL LAB HEMATOLOGY METHOD 07/14/2023 1:07 PM EDT [facility] HGB 14.4 13.7 - 17.5 g/dL LAB HEMATOLOGY METHOD 07/14/2023 1:07 PM EDT [facility] HCT 42.3 40.0 - 51.0 % LAB HEMATOLOGY METHOD 07/14/2023 1:07 PM EDT [facility] Platelet Count 162 155 - 369 10*3/uL LAB HEMATOLOGY METHOD 07/14/2023 1:07 PM EDT [facility] MCV 89 79 - 98 fL LAB HEMATOLOGY METHOD 07/14/2023 1:07 PM EDT [facility] MCH 30.1 26.0 - 32.0 pg LAB HEMATOLOGY METHOD 07/14/2023 1:07 PM EDT [facility] MCHC 34.0 30.7 - 35.5 g/dL LAB HEMATOLOGY METHOD 07/14/2023 1:07 PM EDT [facility] RDW 11.8 11.5 - 14.5 % LAB HEMATOLOGY METHOD 07/14/2023 1:07 PM EDT [facility] MPV 12.6(H) 8.8 - 12.5 fL LAB HEMATOLOGY METHOD 07/14/2023 1:07 PM EDT [facility] nRBC 0.0 <=0.0 per 100 WBCs LAB HEMATOLOGY METHOD 07/14/2023 1:07 PM EDT [facility] Differential Type Automated LAB HEMATOLOGY METHOD 07/14/2023 1:07 PM EDT [facility] Neutrophils % 63.0 % LAB HEMATOLOGY METHOD 07/14/2023 1:07 PM EDT [facility] Lymphocytes % 24.0 % LAB HEMATOLOGY METHOD 07/14/2023 1:07 PM EDT [facility] Monocytes % 8.0 % LAB HEMATOLOGY METHOD 07/14/2023 1:07 PM EDT [facility] Eosinophils % 4.0 % LAB HEMATOLOGY METHOD 07/14/2023 1:07 PM EDT [facility] Basophils % 1.0 % LAB HEMATOLOGY METHOD 07/14/2023 1:07 PM EDT [facility] Immature Granulocytes % 0.0 % LAB HEMATOLOGY METHOD 07/14/2023 1:07 PM EDT [facility] Neutrophils Absolute 4.28 1.60 - 6.10 10*3/uL LAB HEMATOLOGY METHOD 07/14/2023 1:07 PM EDT [facility] Lymphocytes Absolute 1.57 1.20 - 3.90 10*3/uL LAB HEMATOLOGY METHOD 07/14/2023 1:07 PM EDT [facility] Monocytes Absolute 0.51 0.30 - 0.90 10*3/uL LAB HEMATOLOGY METHOD 07/14/2023 1:07 PM EDT [facility] Eosinophils Absolute 0.25 0.00 - 0.50 10*3/uL LAB HEMATOLOGY METHOD 07/14/2023 1:07 PM EDT [facility] Basophils Absolute 0.06 0.00 - 0.10 10*3/uL LAB HEMATOLOGY METHOD 07/14/2023 1:07 PM EDT [facility] Immature Granulocytes Absolute 0.02 0.00 - 0.06 10*3/uL LAB HEMATOLOGY METHOD 07/14/2023 1:07 PM EDT [facility] Blood Venous blood specimen / Unknown Venipuncture / Unknown 07/14/2023 9:04 AM EDT 07/14/2023 9:04 AM EDT Narrative [facility] - 07/14/2023 1:07 PM EDT Therapeutic decision making should be based on absolute values, rather than percentages. us Kalyani Sullivan ADMINISTRATIVE JUDGE LAB BLOOD ORDERABLES Final Re sult [facility] [address] [place] [id number] * (ABNORMAL) Comprehensive Metabolic Panel, Plasma (07/14/2023 9:04 AM EDT) Glucose, Plasma 118(H) 74 - 99 mg/dL 07/14/2023 1:19 PM EDT [facility] BUN, Plasma 15 7 - 21 mg/dL 07/14/2023 1:19 PM EDT [facility] Creatinine, Plasma 1.01 0.80 - 1.30 mg/dL 07/14/2023 1:19 PM EDT [facility] BUN/Creatinine Ratio 15 07/14/2023 1:19 PM EDT [facility] Sodium, Plasma 141 136 - 145 mmol/L 07/14/2023 1:19 PM EDT [facility] Potassium, Plasma 4.2 3.7 - 4.8 mmol/L 07/14/2023 1:19 PM EDT [facility] Chloride, Plasma 105 97 - 107 mmol/L 07/14/2023 1:19 PM EDT [facility] CO2, Plasma 25 22 - 29 mmol/L 07/14/2023 1:19 PM EDT [facility] Anion Gap 11 6 - 16 mmol/L 07/14/2023 1:19 PM EDT [facility] Total Calcium, Plasma 9.5 8.9 - 10.2 mg/dL 07/14/2023 1:19 PM EDT [facility] Total Protein 7.4 6.3 - 7.9 g/dL 07/14/2023 1:19 PM EDT [facility] Albumin, Plasma 4.8 3.5 - 5.2 g/dL 07/14/2023 1:19 PM EDT [facility] AST, Plasma 30 10 - 50 U/L 07/14/2023 1:19 PM EDT [facility] ALT, Plasma 39 10 - 50 U/L 07/14/2023 1:19 PM EDT [facility] Alkaline Phosphatase, Plasma 59 40 - 115 U/L 07/14/2023 1:19 PM EDT [facility] Total Bilirubin, Plasma 0.5 0.2 - 1.1 mg/dL 07/14/2023 1:19 PM EDT [facility] eGFRcr 90.0 mL/min/1.7 3m*2 07/14/2023 1:19 PM EDT [facility] Comment:Reported eGFRcr in m L/min/1.73m2 is based the CKD-EPI 2020 equation that does not use a race coefficient. Blood Venous blood specimen / Unknown Venipuncture / Unknown 07/14/2023 9:04 AM EDT 07/14/2023 9:04 AM EDT us Kalyani Sullivan ADMINISTRATIVE JUDGE LAB BLOOD ORDERABLES Final Re sult [facility] [address] [place] [address] documented in this encounter Visit Diagnoses Diagnosis Encounter for immunization- Primary Uncontrolled type 2 diabetes mellitus with hyperglycemia (CMS/HCC) Controlled type 2 diabetes mellitus without complication, without long-term current use of insulin (CMS/HCC) Hypertriglyceridemia Pure hyperglyceridemia Primary hypertension Unspecified essential hypertension Generalized anxiety disorder Healthcare maintenance documented in this encounter Additional Health Concerns Assessment Noted Time A fall risk assessment has been complete d for the patient 07/14/2023 8:19 AM EDT A Body Mass Index follow-up plan has been documented for the patient 07/14/2023 8:58 AM EDT documented as of this encounter Care Teams Bill Poster Installer Relationship Specialty Start Date End Date Kalyani Sullivan APRN [address] [place] [address] PCP - General 08/28/20 documented as of this encounter
--- OUTSIDE RECORDS SUMMARY | 2024-03-06 17:42 | XMS_ITS | Encounter Summary ---
Author Organization [facility] Address [address] [place] [address] Care Team Providers Care Manager [employer]way Name Role Phone Kalyani Sullivan APRN Primary Care Provider [phone] Encounter Details Date Type Department Care Team (Latest Contact Info) Description 07/14/2023 Travel Social History Tobacco Use Types Packs/Day [...] documented as of this encounter Care Teams Manager Subway Relationship Specialty Start Date End Date Kalyani Sullivan APRN [address] [place] [id number] PCP - General 08/28/20 documented as of this encounter
--- OUTSIDE RECORDS SUMMARY | 2024-03-06 17:42 | XMS_ITS | Encounter Summary ---
Author Organization [facility] Address [address] [place] [address] Care Team Providers Care Dean Of Students Name Role Phone Kalyani Sullivan COMPLAINT INVESTIGATOR Primary Care Provider [phone] Encounter Details Date Type Department Care Team (Late st Contact Info) Description 05/12/2022 Telephone [facility] [address] [place] [address] Kalyani Sullivan APRN [address] [place] [address] Social History Tobacco Use Types [...] encounter Miscellaneous Notes * Telephone Encounter - Vickie Dawkins - 05/12/2022 1:41 PM EST Pt will try and call [facility] and let us know * Telephone Encounter - Vickie Dawkins - 05/12/2022 9:55 AM EST Pls advise documented in this encounter Plan of Treatment Not on file documented as of this encounter Visit Diagnoses Not on filedocumented in this encounter Care Teams Dean Of Students Relationship Specialty Start Date End Date Kalyani Sullivan APRN [address] [place] [id number] PCP - General 08/28/20 documented as of this encounter
--- OUTSIDE RECORDS SUMMARY | 2024-03-06 17:42 | XMS_ITS | Encounter Summary ---
Author Organization [facility] Address [address] [place] [address] Care Team Providers Care Networking Technology Instructor Name Role Phone Kalyani Sullivan MODELING AGENCY MANAGER Primary Care Provider [phone] Reason for Visit * Reason Comments Med Refill Encounter Details Date Type Department Care Team (Late st Contact Info) Description 09/15/2021 [facility] [address] [place] [address] Kalyani Sullivan, MODELING AGENCY MANAGER [address] [place] [address] Controlled type 2 diabetes mellitus without complication, without long-term current use of insulin ([facility]); Hypertriglyceridemia Social History Tobacco Use [...] * Telephone Encounter - Tiffanie Vargas - 09/17/2021 3:44 PM EDT Refill request does not meet protocol. Sending to clinic for review. Additional info: Medication not on protocol when taken in conjunction with a statin. * Telephone Encounter - Tiffanie Vargas - 09/17/2021 3:44 PM EDT Per protocol, 1 medication, pravastatin, has been refused due to: Refill requested too soon. Rx sent 06/23/2021 for 90 day supply with 3 refills. Fenofibrate request sent to clinic triage. documented in this encounter Plan of Treatment Not on file documented as of this encounter Visit Diagnoses Diagnosis Controlled type 2 diabetes mellitus without complication, without long-term current use of insulin ([facility]) Hypertriglyceridemia Pure hyperglyceridemia documented in this encounter Care Teams Networking Technology Instructor Relationship Specialty Start Date End Date Kalyani Sullivan, MODELING AGENCY MANAGER [address] [place] [address] PCP - General 08/28/20 documented as of this encounter
--- OUTSIDE RECORDS SUMMARY | 2024-03-06 17:42 | XMS_ITS | Encounter Summary ---
Author Organization [facility] Address [address] [place] [address] Care Team Providers Care Car Coupler Name Role Phone Kalyani Sullivan CRYSTAL ATTACHER Primary Care Provider Encounter Details Date Type Department Care Team (Late st Contact Info) Description 06/28/2021 Orders Only Family and Community Medicine [address] [place] [address] Kalyani Sullivan, CRYSTAL ATTACHER [address] [place] [address] Low testosterone in male (Primary Dx) Social History Tobacco Use Types [...] on file documented as of this encounter Results * Testosterone, Free and Total (Includes Sex Hormone Binding Globulin), Adult Male (08/05/2021 8:31 AM EDT) Testosterone,P ercentage Free 2.0 1.6 - 2.9 % 08/07/2021 12:34 AM EDT [facility] ([facility]) Testosterone,A dult Male 330 300 - 890 ng/dL 08/07/2021 12:34 AM EDT [facility] ([facility]) SEX HORMONE BINDING GLOBULIN 28 17 - 56 nmol/L 08/07/2021 12:34 AM EDT [facility] ([facility]) Testosterone, Free 65 47 - 244 pg/mL 08/07/2021 12:34 AM EDT [facility] ([facility]) Blood Venous blood specimen / Unknown Venipuncture / Unknown 08/05/2021 8:31 AM EDT 08/05/2021 8:31 AM EDT Narrative [facility] ([facility] - 08/07/2021 12:34 AM EDT INTERPRETIVE INFORMATION: Testosterone by Immunoassay Testosterone immunoassays are both imprecise and inaccurate at low testosterone concentrations, such as those found in children and cisgender females. For these individuals, testing by mass spectrometry is recommended; refer to Testosterone (Adult Females, Children, or Individuals on Testosterone-Suppressing Hormone Therapy) ([facility] test code 4056269). Free or bioavailable testosterone measurements may provide supportive information. For individuals on testosterone hormone therapy, refer to cisgender male reference intervals. No reference intervals have been established for males younger than 14 years or for cisgender females. For a complete set of all established reference intervals, refer to [employer]/Tests/Pub/[id number]. REFERENCE INTERVAL: Sex Hormone Binding Globulin Access complete set of age- and/or gender-specific reference intervals for this test in the [facility] Test Directory ([employer]). INTERPRETIVE INFORMATION: ??Testosterone, Free Calculation Free testosterone concentration is calculated using total testosterone (measured by immunoassay) and the binding constant of testosterone and sex hormone-binding globulin (SHBG). Testosterone immunoassays are both imprecise and inaccurate at low testosterone concentrations, such as those found in children and cisgender females. For these individuals, testing by mass spectrometry is recommended; refer to Testosterone, Free (Adult Females, Children, or Individuals on Testosterone-Suppressing Hormone Therapy) ([employer] test code 7509006). For individuals on testosterone hormone therapy, refer to cisgender male reference intervals. No reference intervals have been established for males younger than 14 years or for cisgender females. For a complete set of all established reference intervals, refer to [employer]/Tests/Pub/[id number]. Performed By: [facility] [address] [place] [address] Financial Solutions Advisor: Hamida Davila MD us Kalyani Sullivan CRYSTAL ATTACHER LAB BLOOD ORDERABLES Final Re sult [facility] ([facility]) [address] [place] [address] documented in this encounter Visit Diagnoses Diagnosis Low testosterone in male- Primary documented in this encounter Care Teams Car Coupler Relationship Specialty Start Date End Date Kalyani Sullivan, JAREN [facility] [address] [place] [id number] PCP - General 08/28/20 documented as of this encounter
--- OUTSIDE RECORDS SUMMARY | 2024-03-06 17:42 | XMS_ITS | Encounter Summary ---
Author Organization [facility] Address [address] [place] [address] Care Team Providers Care Concrete Building Assembler Name Role Phone Unavailable Primary Care Provider Unavailabl e Encounter Details Date Type Department Care Team (Late st Contact Info) Description 02/08/2017 [facility] Vitals Encounter [facility] [address] [place] [address] ProviderGlenn MD [facility] [place] [phone] Social History Tobacco Use Types Packs/Day Years [...] - - Weight 107 kg (236 lb 1.8 oz) 02/08/2017 8:00 AM EDT Height 175.3 cm (5' 9 ) 02/08/2017 7:56 AM EDT Body Mass Index 34.87 02/08/2017 7:56 AM EDT documented in this encounter Plan of Treatment Not on file documented as of this encounter Visit Diagnoses Not on filedocumented in this encounter
--- OUTSIDE RECORDS SUMMARY | 2024-03-06 17:42 | XMS_ITS | Encounter Summary ---
Author Organization [facility] Address [address] [place] [address] Care Team Providers Care Telephone Service Adviser Name Role Phone Kalyani Sullivan OUTCOMES ANALYST Primary Care Provider [phone] Reason for Visit * Reason Comments Med Refill Encounter Details Date Type Department Care Team (Late st Contact Info) Description 07/17/2022 Refill Family and Community Medicine [address] [place] [address] Kalyani Sullivan, OUTCOMES ANALYST [address] [place] [address] Primary hypertension; Controlled type 2 diabetes mellitus without complication, without long-term current use of insulin (CMS/HCC); Hypertriglyceridemia Social History Tobacco Use Types Packs/Day [...] encounter Miscellaneous Notes * Telephone Encounter - Mike Bryant - 07/19/2022 8:17 AM EDT Per protocol, 3 medication(s), metformin, losartan, and pravastatin, has been refused due to: Patient to request at July. documented in this encounter Plan of Treatment Not on file documented as of this encounter Visit Diagnoses Diagnosis Primary hypertension Unspecified essential hypertension Controlled type 2 diabetes mellitus without complication, without long-term current use of insulin ([facility]) Hypertriglyceridemia Pure hyperglyceridemia documented in this encounter Care Teams Telephone Service Adviser Relationship Specialty Start Date End Date Kalyani Sullivan, OUTCOMES ANALYST [address] [place] [address] PCP - General 08/28/20 documented as of this encounter
--- OUTSIDE RECORDS SUMMARY | 2024-03-06 17:42 | XMS_ITS | Encounter Summary ---
Author Organization [facility] Address [address] [place] [address] Care Team Providers Care Education Rn Name Role Phone Kalyani Sullivan WAREHOUSE INSULATION WORKER Primary Care Provider [phone] Reason for Visit * Reason Comments Med Refill Encounter Details Date Type Department Care Team (Late st Contact Info) Description 10/23/2021 Refill Family and Community Medicine [address] [place] [address] Kalyani Sullivan, WAREHOUSE INSULATION WORKER [address] [place] [address] Social History Tobacco Use Types [...] Per protocol, 1 medication(s), metformin, has been approved for 90 day supply with 1 refill(s). Themedication refill request(s) has been sent to [facility] pharmacy. documented in this encounter Plan of Treatment Not on file documented as of this encounter Visit Diagnoses Not on filedocumented in this encounter Care Teams Education Rn Relationship Specialty Start Date End Date Kalyani Sullivan, WAREHOUSE INSULATION WORKER [address] [place] [address] PCP - General 08/28/20 documented as of this encounter
--- OUTSIDE RECORDS SUMMARY | 2024-03-06 17:42 | XMS_ITS | Encounter Summary ---
Author Organization [facility] Address [address] [place] [address] Care Team Providers Care Property Management Coordinator Name Role Phone Kalyani Sullivan APRN Primary Care Provider [phone] Reason for Visit * Reason Onset Date Comments Prior-authorization/insurance Verification 09/23 Encounter Details Date Type Department Care Team (Late st Contact Info) Description 09/23/2022 Telephone [place] [facility] [address] [place] [address] Kathi Rosas [facility] [address] [place] [phone] Prior-authorization/ins urance Verification Social History Tobacco Use Types Packs/Day Years [...] encounter Miscellaneous Notes * Telephone Encounter - Viviane Goodson - 09/23/2022 4:03 PM EDT PA request has been approved and pharmacy notified (Filling pharmacy will be notified by phone, fax, or submitted prescription) Authorized Medication: Trulicity Name of Insurance Approving PA: [facility] PA Number: [id number] PA Effective Dates: 09/23/2022-09/23/2023 Additional Info: * Telephone Encounter - Viviane Goodson - 09/23/2022 4:03 PM EDT Prior authorization initiated by [facility] PA Services. Update will be provided when a determination has been received. Medication: Trulicity PA Submission Method: CMM Case Number/CMM Keenan: [id number] documented in this encounter Plan of Treatment [...] documented as of this encounter Care Teams Property Management Coordinator Relationship Specialty Start Date End Date Kalyani Sullivan APRN [address] [place] [address] PCP - General 08/28/20 documented as of this encounter
--- OUTSIDE RECORDS SUMMARY | 2024-03-06 17:42 | XMS_ITS | Encounter Summary ---
Author Organization [facility] Address [address] [place] [address] Care Team Providers Care Roll Out Manager Name Role Phone Kalyani Sullivan PREPRESS OPERATOR Primary Care Provider [phone] Reason for Visit * Reason Onset Date Comments Med Refill 04/26/2023 Encounter Details Date Type Department Care Team (Late st Contact Info) Description 04/26/2023 Refill [place] [facility] [address] [place] [address] Kalyani Sullivan, PREPRESS OPERATOR [address] [place] [address] Uncontrolled type 2 diabetes [...] encounter Miscellaneous Notes * Telephone Encounter - Wale Mcmahan, [facility] - 04/27/2023 9:04 AM EST Per protocol, 1 medication(s), trulicity, has been approved for 84 day supply with 1 refill[facility]. Please keep upcoming appointment for additional refills. [...] documented as of this encounter Care Teams Roll Out Manager Relationship Specialty Start Date End Date Kalyani Sullivan APRN [address] [place] [address] PCP - General 08/28/20 documented as of this encounter
--- OUTSIDE RECORDS SUMMARY | 2024-03-06 17:42 | XMS_ITS | Encounter Summary ---
Author Organization [facility] Address [address] [place] [address] Care Team Providers Care Flame Cutter Name Role Phone Kalyani Sullivan PHARMACY INNOVATION ASSISTANT Primary Care Provider [phone] Reason for Visit * Reason Onset Date Comments Med Refill 10/23/2021 Encounter Details Date Type Department Care Team (Late st Contact Info) Description 10/23/2021 Refill Family and Community Medicine [address] [place] [address] Kalyani Sullivan, PHARMACY INNOVATION ASSISTANT [address] [place] [address] Controlled type 2 diabetes mellitus without complication, without long-term current use of insulin ([facility]); Hypertriglyceridemia Social History Tobacco Use Types Packs/Day [...] Encounter - Jonathan Woodward, PharmD - 10/24/2021 10:21 PM EDT Per protocol, 1 medication(s), pravastatin, has been refused due to: Refill requested too soon documented in this encounter Plan of Treatment Not on file documented as of this encounter Visit Diagnoses Diagnosis Controlled type 2 diabetes mellitus without complication, without long-term current use of insulin ([facility]) Hypertriglyceridemia Pure hyperglyceridemia documented in this encounter Care Teams Flame Cutter Relationship Specialty Start Date End Date Kalyani Sullivan APRN [address] [place] [address] PCP - General 08/28/20 documented as of this encounter
--- OUTSIDE RECORDS SUMMARY | 2024-03-06 17:42 | XMS_ITS | Encounter Summary ---
Author Organization [facility] Address [address] [place] [address] Care Team Providers Care Loft Rigger Name Role Phone Kalyani Sullivan LEGAL OFFICER Primary Care Provider [phone] Reason for Visit * Reason Comments Med Refill Encounter Details Date Type Department Care Team (Late st Contact Info) Description 08/15/2021 Refill [facility] Community [facility] [address] [place] [address] Kalyani Sullivan, LEGAL OFFICER [address] [place] [address] Primary hypertension Social History Tobacco [...] Miscellaneous Notes * Telephone Encounter - Jonathan Woodward - 08/17/2021 4:27 PM EDT Per protocol, 1 medication(s), losartan, has been refused due to: Refill requested too soon documented in this encounter Plan of Treatment Not on file documented as of this encounter Visit Diagnoses Diagnosis Primary hypertension Unspecified essential hypertension documented in this encounter Care Teams Loft Rigger Relationship Specialty Start Date End Date Kalyani Sullivan APRN [address] [place] [address] PCP - General 08/28/20 documented as of this encounter
--- OUTSIDE RECORDS SUMMARY | 2024-03-06 17:42 | XMS_ITS | Encounter Summary ---
Author Organization [facility] Address [address] [place] [id number] Care Team Providers Care Abrasive Mixer Name Role Phone Kalyani Sullivan SEMICONDUCTOR PROCESSING GROUP LEADER Primary Care Provider Reason for Visit * Reason Comments Med Refill Encounter Details Date Type Department Care Team (Late st Contact Info) Description 06/12/2022 Refill [facility] Community [facility] [address] [place] [address] Kalyani Sullivan SEMICONDUCTOR PROCESSING GROUP LEADER [address] [place] [address] Generalized anxiety disorder Social History [...] encounter Miscellaneous Notes * Telephone Encounter - Roseline Montenegro - 06/13/2022 11:16 AM EST Per protocol, 1 medication(s), Paroxetine 20 mg, has been approved for 90 day supply with 0 refill(s) to [facility] pharmacy. Please keep upcoming appointment for additional refills. Medications have been pended for refill atupcoming appointment. documented in this encounter Plan of Treatment Not on file documented as of this encounter Visit Diagnoses Diagnosis Generalized anxiety disorder documented in this encounter Care Teams Abrasive Mixer Relationship Specialty Start Date End Date Kalyani Sullivan APRN [address] [place] [address] PCP - General 08/28/20 documented as of this encounter
--- OUTSIDE RECORDS SUMMARY | 2024-03-06 17:42 | XMS_ITS | Encounter Summary ---
Author Organization [facility] Address [address] [id number] Care Team Providers Care Consulting Sales Manager Name Role Phone Kalyani Sullivan MOLD WORKER Primary Care Provider [phone] Encounter Details Date Type Department Care Team (Late st Contact Info) Description 07/09/2021 Telephone Family and Community Medicine [address] [place] [address] Kalyani Sullivan APRN [address] [place] [address] Social History Tobacco Use Types [...] AM EST documented as of this encounter Miscellaneous Notes * Telephone Encounter - Kathi Rosas MA - 07/09/2021 10:51 AM EDT Faxed to insurance waiting on approval or denial. documented in this encounter Plan of Treatment Not on file documented as of this encounter Visit Diagnoses Not on filedocumented in this encounter Care Teams Consulting Sales Manager Relationship Specialty Start Date End Date Kalyani Sullivan APRN [address] [place] [address] PCP - General 08/28/20 documented as of this encounter
--- OUTSIDE RECORDS SUMMARY | 2024-03-06 17:42 | XMS_ITS | Encounter Summary ---
Author Organization [facility] Address [address] [place] [address] Care Team Providers Care Counseling Aide Name Role Phone Kalyani Sullivan PROJECT MANAGER INTERIOR DESIGN Primary Care Provider Reason for Visit * Reason Comments Med Refill Encounter Details Date Type Department Care Team (Late st Contact Info) Description 10/12/2021 Refill [facility] Community [facility] [address] [place] [address] Kalyani Sullivan, PROJECT MANAGER INTERIOR DESIGN [address] [place] [address] Uncontrolled type 2 diabetes mellitus with hyperglycemia ([facility]/HCC) Social History Tobacco Use Types Packs/Day [...] * Telephone Encounter - Vickie Dawkins - 10/19/2021 4:24 PM EDT Pt states he is taking 1.5 * Telephone Encounter - Katrin Sorenson - 10/19/2021 12:06 PM EDT Left message for patient to call office. * Telephone Encounter - Vickie Dawkins - 10/15/2021 11:05 AM EDT Pt states he is doing good and ok to increase * Telephone Encounter - Radha Lujan PharmD - 10/14/2021 2:15 PM EDT Refill request does not meet protocol. Sending to clinic for review. Additional info: Please review current dosage. May need to send for higher strength Trulicity if patient has been titrating up. documented in this encounter Plan of Treatment Not on file documented as of this encounter Visit Diagnoses Diagnosis Uncontrolled type 2 diabetes mellitus with hyperglycemia (CMS/HCC) documented in this encounter Care Teams Counseling Aide Relationship Specialty Start Date End Date Kalyani Sullivan, PROJECT MANAGER INTERIOR DESIGN [address] [place] [phone] PCP - General 08/28/20 documented as of this encounter
--- OUTSIDE RECORDS SUMMARY | 2024-03-06 17:42 | XMS_ITS | Encounter Summary ---
Author Organization [facility] Address [address] [place] [address] Care Team Providers Care Transformer Assembly Supervisor Name Role Phone Kalyani Sullivan OFFSET PRESS OPERATOR Primary Care Provider [phone] Reason for Visit * Reason Comments Med Refill Encounter Details Date Type Department Care Team (Late st Contact Info) Description 07/18/2022 Refill Family and Community Medicine [address] [place] [address] Kalyani Sullivan, OFFSET PRESS OPERATOR [address] [place] [address] Social History Tobacco Use Types [...] * Telephone Encounter - Caro Horan - 07/19/2022 11:31 AM EDT Per protocol, 1 medication(s), fenofibrate, has been refused due to: Refill requested too soon Patient has enough medication until appt, 9 month supply sent in 11/12/21 Please keep upcoming appointment for additional refills. Medications have been pended for refill atupcoming appointment. NEXT OFFICE VISIT: 07/22/22 documented in this encounter Plan of Treatment Not on file documented as of this encounter Visit Diagnoses Not on filedocumented in this encounter Care Teams Transformer Assembly Supervisor Relationship Specialty Start Date End Date Kalyani Sullivan APRN [address] [place] [address] PCP - General 08/28/20 documented as of this encounter
--- OUTSIDE RECORDS SUMMARY | 2024-03-06 17:42 | XMS_ITS | Encounter Summary ---
Author Organization [facility] Address [address] [place] [address] Care Team Providers Care Care Director Rn Name Role Phone Kalyani Sullivan APRN Primary Care Provider [phone] Encounter Details Date Type Department Care Team (Late st Contact Info) Description 02/28/2022 Telephone [facility] [address] [place] [address] Kalyani Sullivan APRN [address] [place] [address] Social History Tobacco Use Types [...] * Telephone Encounter - Vickie Dawkins - 02/28/2022 2:54 PM EST requested * Telephone Encounter - Paulette Estes - 02/28/2022 11:56 AM EST ----- Message from Kalyani Sullivan APRN sent at 02/28/2022 9:17 AM EST ----- Please call for his hospital notes from [facility] he was recently there documented in this encounter Plan of Treatment Not on file documented as of this encounter Visit Diagnoses Not on filedocumented in this encounter Care Teams Care Director Rn Relationship Specialty Start Date End Date Kalyani Sullivan, METAL RECLAMATION KETTLE TENDER [address] [place] [address] PCP - General 08/28/20 documented as of this encounter
--- OUTSIDE RECORDS SUMMARY | 2024-03-06 17:42 | XMS_ITS | Encounter Summary ---
Author Organization [facility] Address [address] [place] [address] Care Team Providers Care Manager Sales Name Role Phone Unavailable Primary Care Provider Unavailabl e Encounter Details Date Type Department Care Team (Late st Contact Info) Description 06/29/2016 [facility] AEHR Vitals Encounter [facility] OUTPATIENT CONVERSION[facility] [address] [place] [address] ProviderGlenn MD [facility] [place] [phone] Social History Tobacco Use Types Packs/Day Years [...] - Inhaled Oxygen Concentration - - Weight 110 kg (242 lb 15.9 oz) 06/29/2016 8:17 A M EDT Height 175.3 cm (5' 9 ) 06/29/2016 8:12 AM EDT Body Mass Index 35.88 06/29/2016 8:12 AM EDT documented in this encounter Plan of Treatment Not on file documented as of this encounter Visit Diagnoses Not on filedocumented in this encounter
--- OUTSIDE RECORDS SUMMARY | 2024-03-06 17:42 | XMS_ITS | Encounter Summary ---
Author Organization [facility] Address [address] [place] [address] Care Team Providers Care Edi Programmer Name Role Phone Kalyani Sullivan COLLISION MECHANIC Primary Care Provider [phone] Reason for Visit * Reason Comments Med Refill Encounter Details Date Type Department Care Team (Late st Contact Info) Description 12/19/2022 Refill [place] [facility] [address] [place] [address] Kalyani Sullivan, COLLISION MECHANIC [address] [place] [address] Generalized anxiety disorder Social History [...] encounter Miscellaneous Notes * Telephone Encounter - Payam Stubbs PharmD - 12/20/2022 9:23 AM EDT Per protocol, 1 medication(s), fluoxetine, has been approved for 90 day supply with 2 refill(s) to [facility] pharmacy. documented in this encounter Plan [...] documented as of this encounter Care Teams Edi Programmer Relationship Specialty Start Date End Date Kalyani Sullivan APRN [address] [place] [phone] PCP - General 08/28/20 documented as of this encounter
--- OUTSIDE RECORDS SUMMARY | 2024-03-06 17:42 | XMS_ITS | Encounter Summary ---
Author Organization [facility] Address [address] [place] [address] Care Team Providers Care Assembler Brazer Name Role Phone Kalyani Sullivan SUPERVISOR FERTILIZER PROCESSING Primary Care Provider [phone] Reason for Visit * Reason Comments Med Refill Encounter Details Date Type Department Care Team (Late st Contact Info) Description 07/03/2023 Refill [facility] [address] [place] [address] Kalyani Sullivan, SUPERVISOR FERTILIZER PROCESSING [address] [place] [address] Controlled type 2 diabetes mellitus without complication, without long-term current use of insulin ([facility]); Hypertriglyceridemia; Primary hypertension; Uncontrolled type 2 diabetes mellitus with hyperglycemia ([facility]) Social History Tobacco Use Types Packs/Day Years [...] Telephone Encounter - Jonathan Woodward, PharmD - 07/03/2023 12:57 PM EDT Per protocol, 3 medication(s), losartan, metformin, and pravastatin, has been approved for 90 day supply with 0 refill(s) to [facility]. Please keep upcoming appointment for additional refills. Medications have been pended for refill atupcoming appointment. documented in this encounter Plan of Treatment Not on file documented as of this encounter Visit Diagnoses Diagnosis Controlled type 2 diabetes mellitus without complication, without long-term current use of insulin ([facility]) Hypertriglyceridemia Pure hyperglyceridemia Primary hypertension Unspecified essential hypertension Uncontrolled type 2 diabetes mellitus with hyperglycemia ([facility]) documented in this encounter Additional Health Concerns Assessment Noted Time A fall risk assessment has been complete d for the patient 07/22/2022 7:35 AM EDT A Body Mass Index follow-up plan has been documented for the patient 07/22/2022 8:32 AM EDT documented as of this encounter Care Teams Assembler Brazer Relationship Specialty Start Date End Date Kalyani Sullivan APRN [address] [place] [id number] PCP - General 08/28/20 documented as of this encounter
--- OUTSIDE RECORDS SUMMARY | 2024-03-06 17:42 | XMS_ITS | Encounter Summary ---
Author Organization [facility] Address [address] [place] [address] Care Team Providers Care Bank Boss Name Role Phone Kalyani Sullivan BARREL RIFLER Primary Care Provider [phone] Reason for Visit * Reason Onset Date Comments HCN - Patient Message 10/19/2021 Return juwan l Encounter Details Date Type Department Care Team (Late st Contact Info) Description 10/19/2021 [facility] [address] [place] [address] Kalyani Sullivan, BARREL RIFLER [address] [place] [address] HCN - Patient Message (Return call ) Social History Tobacco Use Types Packs/Day Years [...] Telephone Encounter - Vickie Dawkins - 10/19/2021 4:25 PM EDT Pt has a task in RX response. * Telephone Encounter - Nanette Olmos - 10/19/2021 2:45 PM EDT Patient Phone Message Reason for Call: Pt states returning call from [facility] Best contact number and optimal time of day to reach caller: [phone] Note: Please do not reply to this message. Follow-up communication and further actions as a result of this message need to be communicated with the patient directly, if the patient is not active onMyChart. If the patient is active on MyChart, they will receive notification of the communication/outcome via MyChart. * Telephone Encounter - Brittanie Jacobson - 10/19/2021 2:01 PM EDT Patient returned call although I do not see any open tasks. * Telephone Encounter - Vickie Dawkins - 10/19/2021 1:46 PM EDT Left VM for Pt to call us back * Telephone Encounter - Vinod Cope - 10/19/2021 12:39 PM EDT Patient Phone Message Reason for Call: Patient states returning a call from the clinic. Best contact number and optimal time of day to reach caller: [phone] Note: Please do not reply to this message. Follow-up communication and further actions as a result of this message need to be communicated with the patient directly, if the patient is not active onMyChart. If the patient is active on MyChart, they will receive notification of the communication/outcome via MyChart. documented in this encounter Plan of Treatment Not on file documented as of this encounter Visit Diagnoses Not on filedocumented in this encounter Care Teams Bank Boss Relationship Specialty Start Date End Date Kalyani Sullivan APRN [address] [place] [id number] PCP - General 08/28/20 documented as of this encounter
--- OUTSIDE RECORDS SUMMARY | 2024-03-06 17:43 | XMS_ITS | Encounter Summary ---
[facility] Organization [facility] Address [address] [place] [address] Care Team Providers Care Living Specialist Name Role Phone Kalyani Sullivan APRN Primary Care Provider [phone] Reason for Visit * Health Education (Routine) - Closed Specialty Diagnoses / Procedures Referred By Home t Referred To Contact Nutrition Diagnoses Type 2 diabetes mellitus without complication, unspecified whether ad terminal makeup operator insulin use Kalyani Sullivan APRN [address] [place] [address] Phone: tel: fax: [facility] [address] [place] [address] Phone: tel: fax: Referral ID Status Reason Start Date Expiration Date Visits Re quested Visits Authorized [id number] Closed 06/29/2021 06/29/2022 1 1 Encounter Details Date Type Department Care Team (Latest Contact Info) Description 11/01/2021 11:00 AM EDT - 11/01/2021 11:59 PM EDT Hospital Encounter [facility] DIABETES ED [address] [place] [address] Discharge Disposition: Home or Self Care Social History Tobacco Use Types Packs/Day Years Used Date Smoking Tobacco: Never Assessed Sex and Gender Information Value Date Recorded Sex Assigned at Not on file Legal Sex Male 9:46 AM EDT Gender Identity Not on file Sexual Orientation Not on file documented as of this encounter Consult Notes * Yessy Albrecht, WILIAN - 11/01/2021 11:00 AM EDTSummary: T2DM Nutrition Consult DIABETES NUTRITION EDUCATION CONSULT, 60 minutes diabetes nutrition education. This medical referred consult was provided as an in-office appointment. Consent for treatment was given verbally. Pleasesee media tab for assessment and notes if you use Manflu. If you are not an EPIC user a copy of patient's assessment and notes will be sent per routine. Thank you. --- Yessy Albrecht, MPH, RD, LD documented in this encounter Plan of Treatment Scheduled Referrals Name Type Priority Associated Diagnoses Orde r Schedule Ambulatory Referral to Nutrition Services Outpatient Referral Routine Type 2 diabetes mellitus without complication, unspecified whether ad terminal makeup operator insulin use Ordered: 06/29/2021 documented as of this encounter Visit Diagnoses Not on filedocumented in this encounter Care Teams Living Specialist Relationship Specialty Start Date End Date Kalyani Sullivan APRN [facility] [place] [address] PCP - General Family Medicine 07/21/21 documented as of this encounter
--- OUTSIDE RECORDS SUMMARY | 2024-03-06 17:43 | XMS_ITS | Encounter Summary ---
Author Organization [facility] Address [address] [place] [address] Care Team Providers Care Barmaid Name Role Phone Unavailable Primary Care Provider Unavailabl e Encounter Details Date Type Department Care Team (Late st Contact Info) Description 07/24/2015 [facility] Vitals Encounter [facility] OUTPATIENT CONVERSIONS [address] [place] [address] ProviderGlenn MD [facility] [place] [phone] Social History Tobacco Use Types Packs/Day Years [...] Oxygen Concentration - - Weight 107 kg (235 lb 0.2 oz) 07/24/2015 9:03 AM EDT Height 175.3 cm (5' 9 ) 07/24/2015 9:03 AM EDT Body Mass Index 34.71 07/24/2015 9:03 AM EDT documented in this encounter Plan of Treatment Not on file documented as of this encounter Visit Diagnoses Not on filedocumented in this encounter
--- OUTSIDE RECORDS SUMMARY | 2024-03-06 17:43 | XMS_ITS | Encounter Summary ---
Author Organization [facility] Address [address] [place] [address] Care Team Providers Care Vehicle Safety Inspector Name Role Phone Unavailable Primary Care Provider Unavailabl e Encounter Details Date Type Department Care Team (Late st Contact Info) Description 11/28/2013 [facility] Vitals Encounter [facility] OUTPATIENT CONVERSIONS [address] [place] [address] Provider, MD Glenn [facility] [place] [phone] Social History Tobacco Use Types Packs/Day Years [...] - Inhaled Oxygen Concentration - - Weight 103 kg (227 lb 3 oz) 11/28/2013 3:42 PM E DT Height - - Body Mass Index 33.55 04/30/2013 8:46 AM EST documented in this encounter Plan of Treatment Not on file documented as of this encounter Visit Diagnoses Not on filedocumented in this encounter
--- OUTSIDE RECORDS SUMMARY | 2024-03-06 17:43 | XMS_ITS | Clinical Summary ---
[facility] Address [address] [place] [address] Care Team Providers Care Shell Machine Operator Name Role Phone Kalyani Sullivan APRN Primary Care Provider [phone] Social History Tobacco Use Types Packs/Day Years Used Date Smoking Tobacco: Never Assessed Abuse Screen Answer Date Recorded Unsafe at Home or Work/School Not on file Feels Threatened by Someone? Not on file Does Anyone Keep You from Co ntacting Others or Doint Things Outside the Home? Not on file 01/27/2023 Physical Sign of Abuse Present Not on file 1 Housing Stability Answer Date Recorded Current Living Arrangements Not on file 01/15 Potentially Unsafe Housing Conditions Not on miranda e 01/27/2023 Family and Community Support Answer Raymond e Recorded Help with Day-to-Day Activities Not on file 01/27/2023 Lonely or Isolated Not on file 01/27/2023 Employment Answer Date Recorded Do you want help finding or keeping work or a jair b? Not on file 01/27/2023 Disabilities Answer Date Recorded Concentrating, Remembering, or Making Decisions Difficulty Not on file 01/27/2023 Doing Errands Independently Difficulty Not on fi le 01/27/2023 Education Answer Date Recorded Help with school or training? Not on file Preferred Language Not on file 01/27/2023 Sex and Gender Information Value Date Recorded Sex Assigned at Not on file Legal Sex Male 9:46 AM EDT Gender Identity Not on file Sexual Orientation Not on file Plan of Treatment Health Maintenance Due Date Last Done Comments COLOGUARD 1970 COLON CANCER SCREENING 5 YEA R SIGMOIDOSCOPY 1971 COLONOSCOPY [address] SCREENING [address] COLONOGRAPHY 1971 FECAL OCCULT BLOOD TEST 1971 FIT Testing (1 year) 1971 ANNUAL PHYSICAL 06/29/2021 ZOSTER VACCINE (1 of 2) 10/07/2021 INFLUENZA VACCINE 11/16/2023 02/16/2018 COVID-19 Vaccine (3 - 2023-2 5 season) 2023 01/13/2021, 12/14/2020 TDAP/TD VACCINES (2 - Td or Tdap) 08/22/2029 08/23/2019 HEPATITIS C SCREENING Completed 08/05/2021 Pneumococcal Vaccine 0-64 Aged Out No longer eligible based on patient's age to complete this topic Insurance [employer] Care Teams Shell Machine Operator Relationship Specialty Start Date End Date Kalyani Sullivan [place] [address] PCP - General Family Medicine 07/21/21
--- OUTSIDE RECORDS SUMMARY | 2024-03-06 17:43 | XMS_ITS | Encounter Summary ---
Author Organization [facility] Address [address] [place] [address] Care Team Providers Care Installation Helper Name Role Phone Unavailable Primary Care Provider Unavailabl e Encounter Details Date Type Department Care Team (Late st Contact Info) Description 10/27/2011 [facility] Vitals Encounter [facility] OUTPATIENT CONVERSIONS [address] [place] [address] ProviderGlenn MD [facility] [place] [phone] Social History Tobacco Use Types Packs/Day Years [...] Concentration - - Weight 103 kg (227 lb) 10/27/2011 3:37 PM EDT Height 175.3 cm (5' 9 ) 10/27/2011 3:37 PM EDT Body Mass Index 33.52 10/27/2011 3:37 PM EDT documented in this encounter Plan of Treatment Not on file documented as of this encounter Visit Diagnoses Not on filedocumented in this encounter
--- OUTSIDE RECORDS SUMMARY | 2024-03-06 17:43 | XMS_ITS | Encounter Summary ---
Author Organization [facility] Address [address] [place] [address] Care Team Providers Care Landfill Gas Technician Name Role Phone Kalyani Sullivan APRN Primary Care Provider [phone] Encounter Details Date Type Department Care Team (Latest Contact Info) Description 12/03/2021 3:26 PM EDT - 12/03/2021 11:59 PM EDT Hospital Encounter DIABETES ED [address] [facility] [address] [place] [address] Discharge Disposition: Home or Self Care Social History Tobacco Use Types Packs/Day Years Used Date Smoking Tobacco: Never Assessed Sex and Gender Information Value Date Recorded Sex Assigned at Not on file Legal Sex Male 9:46 AM EDT Gender Identity Not on file Sexual Orientation Not on file documented as of this encounter Progress Notes * Yessy Albrecht RD - 12/03/2021 3:30 PM EDTSummary: DM Nutrition Follow Up DIABETES NUTRITION EDUCATION CONSULT, 30 minutes diabetes nutrition education. This medical referred consult was provided as a telephone call, tele-health or e-visit, as patient is unable to attend an in-office appointment due to the COVID-19 crisis. Consent for treatment was given verbally. Pleasesee media tab for assessment and notes if you use Apisphere. If you are not an Apisphere user a copy of patient's assessment and notes will be sent per routine. Thank you. --- Yessy Albrecht, MPH, RD, LD, CDCES documented in this encounter Plan of Treatment Not on file documented as of this encounter Visit Diagnoses Not on filedocumented in this encounter Care Teams Landfill Gas Technician Relationship Specialty Start Date End Date Kalyani Sullivan APRN [address] [place], [place] [id number] PCP - General Family Medicine 07/21/21 documented as of this encounter
--- OUTSIDE RECORDS SUMMARY | 2024-03-06 17:43 | XMS_ITS | Encounter Summary ---
Author Organization [facility] Address [address] [place] [address] Care Team Providers Care Button Grader Name Role Phone Unavailable Primary Care Provider Unavailabl e Encounter Details Date Type Department Care Team (Late st Contact Info) Description 12/06/2013 [facility] Vitals Encounter [facility] OUTPATIENT CONVERSIONS [address] [place] [address] ProviderGlenn MD [facility] [place] [phone] Social History Tobacco Use Types Packs/Day Years [...] Oxygen Concentration - - Weight 104 kg (228 lb 3 oz) 12/06/2013 1:24 PM E DT Height 175.3 cm (5' 9 ) 12/06/2013 1:24 PM EDT Body Mass Index 33.7 12/06/2013 1:24 PM EDT documented in this encounter Plan of Treatment Not on file documented as of this encounter Visit Diagnoses Not on filedocumented in this encounter
--- OUTSIDE RECORDS SUMMARY | 2024-03-06 17:43 | XMS_ITS | Encounter Summary ---
Author Organization [facility] Address [address] [place] [address] Care Team Providers Care Carpenter/Labor Name Role Phone Unavailable Primary Care Provider Unavailabl e Encounter Details Date Type Department Care Team (Late st Contact Info) Description 11/04/2010 [facility] Vitals Encounter [facility] OUTPATIENT CONVERSIONS [address] [place] [address] ProviderGlenn MD [facility] [place] [phone] Social History Tobacco Use Types Packs/Day Years [...] - Inhaled Oxygen Concentration - - Weight 101 kg (222 lb 2 oz) 11/04/2010 4:31 PM E DT Height 175.3 cm (5' 9 ) 11/04/2010 4:31 PM EDT Body Mass Index 32.8 11/04/2010 4:31 PM EDT documented in this encounter Plan of Treatment Not on file documented as of this encounter Visit Diagnoses Not on filedocumented in this encounter
--- OUTSIDE RECORDS SUMMARY | 2024-03-06 17:43 | XMS_ITS | Encounter Summary ---
Author Organization [facility] Address [address] [place] [address] Care Team Providers Care Road Design Engineer Name Role Phone Unavailable Primary Care Provider Unavailabl e Encounter Details Date Type Department Care Team (Late st Contact Info) Description 04/30/2013 [facility] Vitals Encounter [facility] OUTPATIENT CONVERSIONS [address] [place] [address] ProviderGlenn MD [facility] [place] [phone] Social History Tobacco Use Types Packs/Day Years [...] - - Weight 105 kg (232 lb 6 oz) 04/30/2013 8:[address] Height 175.3 cm (5' 9 ) 04/30/2013 8:46 AM EST Body Mass Index 34.32 04/30/2013 8:46 AM EST documented in this encounter Plan of Treatment Not on file documented as of this encounter Visit Diagnoses Not on filedocumented in this encounter
--- NOTE | 2024-03-06 18:30 | EXP.UTC ---
Discharge Plan Prescriptions Prescriptions: New capsaicin 0.025 % cream 1 applic topical TID PRN (Reason: pain) Qty: 25 0RF Rx Instructions: do not wash area for at least 30 min after application ibuprofen 600 mg tablet 600 mg PO Q6HP PRN (Reason: Mild Pain) Qty: 30 0RF Referrals Follow up/Referrals: Kalyani Sullivan [Primary Care Provider] - See instructions Activity Restrictions/Add. Instructions Additional Instructions/Restrictions: Rest the extremity, Elevate the extremity as tolerated while you are resting. Take the medications as directed. Follow up with your regular doctor. GO TO THE ER FOR ANY WORSENING SYMPTOMS OR CONCERNS Clinical Impressions Clinical Impression: Left forearm pain Instructions Patient Instructions: DI for Arm Pain, Ibuprofen, Capsaicin Topical Print Language Print Language: [place] Citizen Discharge ED Provider: Vinod Ivory [facility] General Stated complaint: pain LT forearm Time Seen by Provider: 03/06/24 18:30 History of Present Illness Provider Complaint: He states that for the past 3 days he has had a pain in his left forearm. He denies any known injury. The pain varies in intensity. He has not found anything that causes the pain to be worse or better, except that after he has used his arm all day at work it is worse. He denies any chest pain, shortness of breath or any other symptoms. Related Data Previous Rx's ?Medication ?Instructions ?Recorded capsaicin 0.025 % topical cream 1 applic topical TID PRN pain #25 03/06/24 grams ibuprofen 600 mg tablet 600 mg PO Q6HP PRN Mild Pain #30 03/06/24 tabs Allergies Allergy/AdvReac Type Severity Reaction Status Date / Time Penicillins Allergy Verified 04/24/21 15:20 [facility] Disclaimer: The information contained in this section may have been updated after the patient was seen, as this information can be updated by other users. Medical History (Updated 03/06/24 @ 19:06 by Vinod Ivory APRN) Diabetes mellitus, type 2 Depression Hyperlipidemia Social History (Updated 02/26/22 @ 14:24 by Martha Camejo APRN) Smoking Status: Unknown if ever smoked alcohol intake: never current occupational status: other Travel in the last 8 weeks: None ROS Obtained: Yes All systems reviewed & no additional complaints except as documented Constitutional Constitutional: Denies chills and Denies fever(s) Eyes Eyes: Denies eye discharge ENT Ears, Nose, Mouth, and Throat: Denies dizziness, Denies otalgia and Denies sore throat Cardiovascular Cardiovascular: Denies chest pain Respiratory Respiratory: Denies shortness of breath, Denies chest congestion, Denies cough, Denies stridor and Denies wheezing Gastrointestinal Gastrointestingal: Denies nausea or vomiting Musculoskeletal Musculoskeletal: Reports as per HPI Integumentary/Breasts Skin/Breast: Denies redness, Denies rash and Denies wounds Neurologic Neurologic: Denies dizziness and Denies paresthesias Allergic/Immunologic Allergic/Immunologic: Denies wheezing Physical Exam General General appearance: alert and in no apparent distress Head Head exam: atraumatic, normocephalic and normal inspection Eye Eye exam: Present normal appearance, PERRL and EOMI ENT ENT exam: Present normal exam, normal oropharynx, mucous membranes moist, TM's normal bilaterally and normal external ear exam Neck Neck exam: Present normal inspection, full ROM and trachea midline; Absent meningismus or lymphadenopathy Chest Chest inspection: Present normal inspection and symmetric chest wall rise; Absent tenderness Respiratory Respiratory exam: Present normal lung sounds bilaterally; Absent respiratory distress Cardiovascular Cardiovascular exam: Present regular rate and normal rhythm; Absent JVD Abdominal Exam Abdominal exam: Present soft and normal bowel sounds; Absent distention, tenderness or guarding Extremities Exam Extremities exam: Present full ROM and normal capillary refill; Absent calf tenderness Expanded Upper Extremity Exam Left: Shoulder exam: Present normal inspection and full ROM; Absent tenderness Arm exam: Present normal inspection and full ROM; Absent tenderness Elbow exam: Present normal inspection and full ROM; Absent tenderness Forearm/Wrist exam: Present normal inspection and full ROM; Absent tenderness Hand exam: Present normal inspection and full ROM; Absent tenderness Back Exam Back exam: Present normal inspection; Absent tenderness Neurological Exam Neurological exam: Present alert, oriented X3, CN II-XII intact, normal gait and reflexes normal; Absent motor sensory deficit Psychiatric Psychiatric exam: Present normal affect and normal mood Skin Skin exam: Present warm, dry, intact and normal color; Absent rash, cyanosis, diaphoresis, erythema, pallor or mottled Lymphatic Lymphatic Findings: no adenopathy Medical Decision Making Medical Records Medical records reviewed: No I reviewed the patient's medical records. Screening: Per USPSTF and CDC recommendations, given the prevalence of disease in our region, it is our hospital?s policy to screen for HIV and viral Hepatitis for all patients aged 18 and over and those with ongoing risk factors. Richard Inquiry Pt receiving controlled substance: No Orders (Tests/Meds): ORDERS Category Date Time Status Forearm XR left 2 views [XR forearm LT 2V] Stat Exams 03/06/24 17:39 Completed
[2024-03-06 18:35] VITALS: BP 116/81; PULSE 71; RESP 20; TEMP 36.6; O2SAT 99; BMI 32.3
[2024-03-06 19:13] VITALS: BP 116/81; PULSE 71; RESP 20; TEMP 36.6; O2SAT 99
== END 2024-03-06 19:14 | disposition home or self-care (01) ==
PROVIDERS: Emergency Provider Nurse Practitioner Family; PCP Nurse Practitioner Family
DX: M79.632 Pain in left forearm (principal)
CPT/HCPCS: 73090; 99213; G0381